=== PATIENT | male | born 1960 | race Caucasian/White ===

== ENCOUNTER 2025-01-27 17:35 | Inpatient (IN) | payer BC, SELFPAY ==
[2025-01-27] VITALS (20 sets, daily range): BP systolic 117–247; BP diastolic 64–107; PULSE 58–108; RESP 16–22; TEMP 36.7; O2SAT 93–100; BMI 40.1
[2025-01-27] MEDS: succinylcholine 20 mg/mL SDV 10mL 100 MG IVP (17:39)
[2025-01-27] MEDS: etomidate 2 mg/mL INJ SDV 10 mL 20 MG IVP (17:39)
[2025-01-27] MEDS: propofol 10 mg/mL SDV 20 mL 80 MG IVP (17:42)
[2025-01-27] MEDS: propofol 10 mg/mL SDV 20 mL 120 MG IVP (17:42)
--- NOTE | 2025-01-27 17:48 | CTR_ITS ---
PROCEDURE INFORMATION: Exam: CTA Chest With Contrast Exam date and time: 01/27/2025 6:25 PM Age: 64 years old Clinical indication: Injury or trauma; Fall; Blunt trauma (contusions or hematomas); Additional info: Vfib arrest TECHNIQUE: Imaging protocol: Computed tomographic angiography of the chest with contrast. Exam focused on the arteries. 3D rendering (Not supervised by radiologist): MIP and/or 3D reconstructed images were created by the technologist. Radiation optimization: All CT scans at this facility use at least one of these dose optimization techniques: automated exposure control; mA and/or kV adjustment per patient size (includes targeted exams where dose is matched to clinical indication); or iterative reconstruction. Contrast material: OMNIPAQUE 350; Contrast volume: 100 ml; Contrast route: INTRAVENOUS (IV); COMPARISON: CR (CHEST, ) 01/27/2025 5:46 PM RADIATION DOSE METRICS: Total DLP (mGy-cm): 538.12 FINDINGS: Tubes, catheters and devices: Endotracheal catheter seen in good position above the level of the javier. NG/OG tube is seen with tip of the catheter in the stomach, appearing in good position. Pulmonary arteries: Main pulmonary artery appears upper limits of normal at 3.3 cm. Pulmonary arteries appear unremarkable otherwise. No findings to indicate central or main pulmonary emboli. Aorta: Ascending thoracic aorta measures 3.9 cm, aortic arch measures 3.3 cm and descending thoracic aorta measures 3.5 cm. No findings to indicate thoracic aortic dissection or aneurysm. Lungs: Dependent areas of consolidation noted posteriorly throughout both lungs, with likely significant component of atelectasis, though could represent pneumonias such as aspiration. Tiny calcified granuloma right lung base. Pleural spaces: No pleural effusion. No pneumothorax. Heart: Cardiomegaly, particularly left side of the heart and left ventricular hypertrophy. No pericardial effusion. Suggestion of [id number] left coronary artery calcification. Lymph nodes: No significant lymph node enlargement or lymphadenopathy. Gallbladder and biliary ducts: Images through the upper-most abdomen demonstrate multiple gallstones or cholelithiasis. Bones/joints: A nondisplaced rib fracture seen anterior 5th rib on the right. Mild spondylotic change thoracic spine with mild scoliosis. Soft tissues: Unremarkable. CT/CT angio chest PE protcl [id number] IMPRESSION: 1. Endotracheal catheter and NG/OG tube appear in good position, as noted above. 2. No findings of thoracic aortic dissection/aneurysm. Pulmonary arteries show no significant abnormality. 3. Dependent areas of consolidation noted posteriorly throughout both lungs, more prominent within the lower lungs. While this may represent significant component of atelectasis, though also consider pneumonia such as aspiration. 4. Cardiomegaly, particularly left side of the heart and suggestion of left ventricular hypertrophy. No pericardial effusion. [id number] left coronary artery calcification. 5. Cholelithiasis. 6. Nondisplaced rib fracture anterior 5th rib on the right.
--- NOTE | 2025-01-27 17:48 | XRR_ITS ---
PROCEDURE INFORMATION: Exam: XR Chest Exam date and time: 01/27/2025 5:46 PM Age: 64 years old Clinical indication: Shortness of breath; Additional info: Stemi alert TECHNIQUE: Imaging protocol: Radiologic exam of the chest. Views: 1 view. COMPARISON: No relevant prior studies available. FINDINGS: Tubes, catheters and devices: Endotracheal catheter is seen and appears in good position with tip of the catheter at the level of the inferior heads of the clavicle and approximately 4 cm above the level of the javier. NG/OG tube is seen and projects in good position in the upper left abdomen at the expected level of the stomach. Overlying monitor leads and pacer pad noted. Lungs: No infiltrate or consolidation. Mild central vascular congestion on this supine exam. Pleural spaces: No significant pleural effusion. No pneumothorax is seen. Heart/Mediastinum: Prominence of the cardiomediastinal silhouette on this supine single view exam. When clinically able, this could be better evaluated with semi-upright or upright exam. Bones/joints: Visualized osseous structures show no acute abnormality. XR/XR chest 1V portable [id number] IMPRESSION: 1. Endotracheal catheter appears in good position, approximately 4 cm above the level of the javier. NG/OG tube is seen with distal aspect in the upper left abdomen at the expected level of the stomach. 2. Accentuation or prominence of the cardiomediastinal silhouette with supine exam, along with mild central vascular congestion with supine exam. When clinically able, this could be better evaluated with semi-upright or upright exam.
--- NOTE | 2025-01-27 17:48 | ECG_ITS ---
[facility] Test Date: 2025-01-27 Pat Name: Cassi Navas Department: Room: Gender: Male Newsroom Intern: : 1960 Requested By: Mitch Lagos Order Number: [id number] Jann MD: Joseph Burnett M.D. Measurements Intervals [place] Rate: 100 P: 44 SC: 156 QRS: -88 QRSD: 195 T: 31 QT: 337 QTc: 435 Interpretive Statements SINUS TACHYCARDIA WITH OCCASIONAL VENTRICULAR PREMATURE COMPLEXES WITH FREQUENT SUPRAVENTRICULAR PREMATURE COMPLEXES RIGHT BUNDLE BRANCH BLOCK [120+ ms QRS DURATION, UPRIGHT V1, 40+ ms S IN I/aVL/V4/V5/V6] LEFT ANTERIOR FASCICULAR BLOCK [QRS AXIS <= -45, QR IN I, RS IN II] INTERPRETATION BASED ON A DEFAULT AGE OF 40 YEARS No previous ECG available for comparison Electronically Signed On 01-27-2025 20:00:42 CDT by Joseph Burnett M.D. [id number]
[2025-01-27 18:00] LABS: ABG PCO2 52.8 mmHg (35-45); ABG PH Result 7.27 (7.35-7.45); Alveolar-Arterial Oxygen Gradi 75.5 mmHg (5-10); Arterial Blood Gas Hematocrit 46.6 % (42-52); Blood Gas Allen Test Pos; Blood Gas Operator Identificat CK; Blood Gas Sample Site Radial, left; Blood Gas Sample Type Arterial; Blood Gas Tidal Volume 0.50; Carboxyhemoglobin 1.1 %THgb (0.4-20.1); Glucose Level-ABG 218.0 mg/dL (70-115); HCO3 ABG 24.0 mmol/L (22-26); Ionized Calcium Level - ABG 1.2 mmol/L (1.1-1.4); Methemoglobin 1.0 % (0.4-1.5); Oxygen Saturation ABG 91.0; PEEP 10.0 cmH20; PO2 ABG 67.0 mmHg (80.0-100.0); PO2 FiO2 Ratio Arterial Blood 67; Potassium Level - ABG 3.0 mmol/L (3.5-5.0); Sodium Level - ABG 147.0 mmol/L (131-143)
[2025-01-27] MEDS: propofol 1,000 MG/100 ML INJ 4.08 MG IV (18:05)
[2025-01-27] MEDS: heparin 5,000 unit/mL INJ 1 mL 4000 UNIT IVP (18:11)
--- NOTE | 2025-01-27 18:15 | PM.HP ---
Providers/Chief Complaint Admitting Physician: Alejandro Ruiz MD/ Cardiology Chief Complaint: Cardiac arrest History of Present Illness Cassi Navas is a 64 year old male with no prior known cardiac history has been brought by EMS after he passed out while working in the backyard with the . Per EMS there was no chest pain complaints before. The started CPR and called EMS. Was noted to be in V-fib arrest. ROSC acheived and per EMS, total CPR time was approx 15 minutes. Post ROSC not showing STEMI. Patient is intubated. Review of Systems General: Reports: ROS unobtainable due to endotracheal tube Vitals/I&O/Wt Last Vital Signs Temp 98.1 F 01/27/25 17:42 Pulse 108 H 01/27/25 17:42 Resp 20 H 01/27/25 17:48 BP 247/107 01/27/25 17:42 Pulse Ox 93 01/27/25 17:42 O2 Del Method Mechanical Ventilation 01/27/25 17:42 FiO2 100 01/27/25 17:48 Weight last 48 hrs Weight 300 lb Physical Exam Narrative: GENERAL: Patient is intubated and sedated NECK: No jugular vein distension. [] HEENT: No cyanosis. No icterus. No pallor. [] HEART: Irregularly irregular LUNGS: Diminished air entry EXTREMITIES: Lower extremities with no edema A&P Assessment and plan 1. Cardiac arrest with ventricular fibrillation: Plan: Per EMS report patient had a V-fib cardiac arrest at initial presentation and had successful ROSC after total CPR time of 15 minutes. We do not have any other history. EKG is not showing acute ST elevation AL. We will obtain an emergent chest CT and take patient for coronary angiogram Heparin given. Will also receive aspirin. Patient will need ICU transfer post procedure. PDMP PDMP Reviewed: Not Reviewed Attestations Medical Necessity Statement*: Care expected to cross 2 midnights. Patient has presented post cardiac arrest and will be going for emergent CT chest and coronary angiogram. Coding Level of Care Code Acute Code for g Fwd Diagnoses Cardiac arrest with ventricular fibrillation I46.9; I49.01
[2025-01-27] MEDS: midazolam hcl 100 MG/100 ML BAG IV (19:00)
[2025-01-27] MEDS: fentaNYL 1,000 MCG/100 ML BAG 10 MCG IV (19:00)
[2025-01-27 19:04] LABS: Hematocrit 41.9 % (37-53); Hemoglobin 14.30 g/dL (11.27-16.99); Mean Corpuscular HGB Conc 34.1 g/dL (30-55); Mean Corpuscular Hemoglobin 30.9 pg (27-33); Mean Corpuscular Volume 90.5 fl (82-101); Nucleated Red Blood Cells % 0 %; Platelet Count 229 10^3/cmm (157-399); Red Blood Count 4.63 10^6/uL (3.85-5.65); White Blood Count 16.76 10^3/uL (3.29-11.43)
[2025-01-27 19:17] LABS: INR 1.03 (0.8-1.2); Prothrombin Time 14.20 SECONDS (12.1-14.9)
[2025-01-27 19:19] LABS: Partial Thromboplastin Time 59.0 SECONDS (23.9-36.7)
[2025-01-27 19:22] LABS: Troponin(5th) Baseline 73 ng/L (0-15)
--- NOTE | 2025-01-27 19:27 | W.ED.GENADLT ---
HPI - General Adult General: Chief complaint: Cardiac Arrest/CPR Stated complaint: Stemi- Time Seen by Provider: 01/27/25 17:41 History of Present Illness: Patient is an obese middle-aged male who experienced a witnessed sudden collapse at home today. His immediately initiated CPR. EMS arrived approximately 5 minutes after the collapse and found the patient in ventricular fibrillation. They delivered one shock and administered one dose of epinephrine. After approximately 13 minutes of resuscitation efforts, return of spontaneous circulation (ROSC) was achieved. Upon arrival to the ED, the patient was obtunded with no purposeful movements, though he demonstrated spontaneous breathing and was somewhat agitated with writhing movements. Per , the patient has no known medical history as he refuses to see doctors and takes no medications. There was no prodrome reported prior to the collapse. Course Vital Signs: Vital signs: Vital Signs Temperature 98.1 F 01/27/25 17:42 Pulse Rate 108 H 01/27/25 17:42 Respiratory Rate 20 H 01/27/25 17:48 Blood Pressure 247/107 01/27/25 17:42 Pulse Oximetry 93 01/27/25 17:42 Oxygen Delivery Me thod Mechanical Ventil ation 01/27/25 17:42 Fraction of Inspir ed Oxygen 100 01/27/25 17:48 MDM - General Adult Medical Decision Making ROS: Unobtainable due to patient's condition. MEDICATIONS AND ALLERGIES: Meds: None reported by Allergies: None known PAST HISTORICAL DATA: PMH: Unknown - reports patient refuses to see doctors PSH: Unknown Social: Unknown Family History: Unknown VITAL SIGNS: Blood sugar: 193 Heart rate: Approximately 100 bpm Blood pressure: Unable to obtain accurate measurement initially, but patient had strong radial pulses bilaterally PHYSICAL EXAM: General: Obtunded, agitated with non-purposeful movements HEENT: Pupils 4-5mm and reactive bilaterally Neck: Not examined in detail Respiratory: Spontaneous breathing present initially Cardiovascular: Strong radial pulses bilaterally, tachycardic Abdomen: Distended Extremities: No significant lower extremity swelling or edema noted Neurological: No purposeful movements, eyes opening spontaneously, agitated INITIAL IMPRESSION AND PLAN: Given the history and presentation, the primary working diagnosis is cardiac arrest with return of spontaneous circulation, likely due to acute coronary syndrome. Additional considerations include primary arrhythmia, pulmonary embolism, aortic dissection, and metabolic derangements. Based on this initial impression I will order: 1. Rapid sequence intubation for airway protection 2. CTA of the chest to evaluate for aortic dissection and pulmonary embolism 3. EKG to evaluate for STEMI 4. Laboratory studies including CBC, CMP, troponin 5. Cardiology consultation for possible emergent cardiac catheterization 6. Heparin anticoagulation if no contraindications identified 7. Sedation with propofol and analgesia as needed TEST INTERPRETATIONS: EKG: Sinus tachycardia with occasional ventricular premature complexes and frequent supraventricular premature complexes. Rate of 100 beats per minute. Right bundle branch block noted. No ST elevation [place] identified. CTA Chest: ET tube in appropriate position above the javier. No evidence of thoracic aortic dissection or aneurysm. No significant abnormalities of the pulmonary artery. Dependent areas of consolidation posteriorly throughout both lungs, more prominent within the lower lungs, concerning for aspiration. Cardiomegaly noted. Mild to moderate left coronary artery calcification. Nondisplaced rib fracture of the anterior fifth rib on the right, consistent with CPR. Labs: WBC 16.6, initial troponin 73 PROCEDURES: Procedure: Endotracheal Intubation Indication: Airway protection in post-cardiac arrest patient with obtundation Technique: Rapid sequence intubation performed at bedside using direct laryngoscopy with a MAC 4 blade. An 8.0 ET tube was placed successfully on first attempt without complications or episodes of hypoxemia. Medications: Etomidate 20mg IV and succinylcholine 100mg IV for induction and paralysis. Post-intubation sedation with propofol and analgesia with fentanyl. Confirmation: Proper placement confirmed by end-tidal CO2 detection, bilateral breath sounds, and subsequent CTA chest showing appropriate positioning above the javier. Complications: None CONSIDERED BUT NOT PERFORMED: Thrombolytics considered but not administered due to plan for direct cardiac catheterization and absence of confirmed massive pulmonary embolism. FINAL IMPRESSION: Based on all the above, my clinical impression is most compatible with cardiac arrest with return of spontaneous circulation, likely due to acute coronary syndrome given the elevated troponin of 73. The clinical picture is not currently suggestive of aortic dissection or massive pulmonary embolism based on CTA findings. Although other conditions were also considered, they were deemed unlikely based on the clinical information available. CLINICAL DISPOSITION: The patient's current condition is critical but stable in my estimation and the most appropriate and indicated disposition at this time is direct admission to the cardiac catheterization laboratory under the care of Dr. Ruiz from cardiology, followed by ICU admission. The patient requires admission due to the severity of his condition following cardiac arrest with ROSC. He requires intensive monitoring, mechanical ventilation, and further cardiac evaluation and intervention. The patient has evidence of myocardial injury with an elevated troponin and will benefit from emergent cardiac catheterization to identify and potentially treat coronary artery disease. RISK STRATIFICATION AND CLINICAL DECISION RULES APPLIED: Post-cardiac arrest care protocol applied. Patient meets criteria for emergent cardiac catheterization based on cardiac arrest with ROSC and elevated troponin, without evidence of non-cardiac cause. CASE SUMMARY: Middle-aged obese male with no known medical history who suffered witnessed cardiac arrest at home with immediate bystander CPR by . EMS found patient in ventricular fibrillation, administered one shock and one dose of epinephrine, with ROSC achieved after approximately 13 minutes of resuscitation. In the ED, patient was obtunded without purposeful movements but with spontaneous breathing and agitation. RSI was performed for airway protection with successful intubation. Initial troponin was elevated at 73. EKG showed sinus tachycardia with occasional PVCs and frequent PACs, with right bundle branch block but no STEMI. CTA chest ruled out aortic dissection and pulmonary embolism, showing cardiomegaly and coronary calcifications. Patient received 4,000 units of heparin bolus and was taken directly to the cardiac catheterization laboratory by Dr. Ruiz from cardiology, with plan for ICU admission afterward. Lab Data I reviewed the patient's lab results. 01/27/25 18:58 01/27/25 18:58 Radiology Impressions Chest CTA 01/27/25 17:48 IMPRESSION: 1. Endotracheal catheter and NG/OG tube appear in good position, as noted above. 2. No findings of thoracic aortic dissection/aneurysm. Pulmonary arteries show no significant abnormality. 3. Dependent areas of consolidation noted posteriorly throughout both lungs, more prominent within the lower lungs. While this may represent significant component of atelectasis, though also consider pneumonia such as aspiration. 4. Cardiomegaly, particularly left side of the heart and suggestion of left ventricular hypertrophy. No pericardial effusion. Fymo-tv-[id number] left coronary artery calcification. 5. Cholelithiasis. 6. Nondisplaced rib fracture anterior 5th rib on the right. Chest X-Ray 01/27/25 17:48 IMPRESSION: 1. Endotracheal catheter appears in good position, approximately 4 cm above the level of the javier. NG/OG tube is seen with distal aspect in the upper left abdomen at the expected level of the stomach. 2. Accentuation or prominence of the cardiomediastinal silhouette with supine exam, along with mild central vascular congestion with supine exam. When clinically able, this could be better evaluated with semi-upright or upright exam. Laboratory Results WBC 16.76 10^3/uL (3.29-11.43) H 01/27/25 18:58 RBC 4.63 10^6/uL (3.85-5.65) 01/27/25 18:58 Hgb 14.30 g/dL (11.27-16.99) 01/27/25 18:58 Hct 41.9 % (37-53) 01/27/25 18:58 MCV 90.5 fl (82-101) 01/27/25 18:58 MCH 30.9 pg (27-33) 01/27/25 18:58 MCHC 34.1 g/dL (30-55) 01/27/25 18:58 RDW 13.8 % (12.1-15.1) 01/27/25 18:58 Plt Count 229 10^3/cmm (157-399) 01/27/25 18:58 MPV 9.6 fL (7.4-10.4) 01/27/25 18:58 Neut % (Auto) 87.4 % 01/27/25 18:58 Lymph % (Auto) 6.2 % 01/27/25 18:58 [place] % (Auto) 5.4 % 01/27/25 18:58 Eos % (Auto) 0.1 % 01/27/25 18:58 Baso % (Auto) 0.2 % 01/27/25 18:58 Neut # (Auto) 14.64 10^3/uL (1.8-7.7) H 01/27/25 18:58 Lymph # (Auto) 1.0 10^3/uL (0.8-4.8) 01/27/25 18:58 [place] # (Auto) 0.9 10^3/uL (0.2-0.9) 01/27/25 18:58 Eos # (Auto) 0.0 10^3/uL (0.0-0.8) 01/27/25 18:58 Baso # (Auto) 0.0 10^3/uL (0.0-0.1) 01/27/25 18:58 Nucleated RBC % (auto) 0 % 01/27/25 18:58 Nucleated RBCs # 0.0 /100WBC 01/27/25 18:58 PT 14.20 SECONDS (12.1-14.9) 01/27/25 18:58 INR 1.03 (0.8-1.2) 01/27/25 18:58 APTT 59.0 SECONDS (23.9-36.7) H 01/27/25 18:58 Specimen Type Arterial 01/27/25 17:48 Sample Site Radial, left 01/27/25 17:48 ABG pH 7.27 (7.35-7.45) L 01/27/25 17:48 ABG pCO2 52.8 mmHg (35-45) H 01/27/25 17:48 ABG pO2 67.0 mmHg (80.0-100.0) L 01/27/25 17:48 ABG PO2/FiO2 Ratio 67 01/27/25 17:48 ABG HCO3 24.0 mmol/L (22-26) 01/27/25 17:48 ABG O2 Saturation 91.0 01/27/25 17:48 ABG Base Excess -3.8 mmol/L (-2.0-2.0) L 01/27/25 17:48 Raj Test Pos 01/27/25 17:48 A-a O2 Gradient 75.5 mmHg (5-10) H 01/27/25 17:48 Hematocrit 46.6 % (42-52) 01/27/25 17:48 Hgb O2 Saturation 89.1 % (95-100) L 01/27/25 17:48 Carboxyhemoglobin 1.1 %THgb (0.4-20.1) 01/27/25 17:48 Methemoglobin 1.0 % (0.4-1.5) 01/27/25 17:48 Total Hemoglobin 15.2 g/dL (14-18) 01/27/25 17:48 Sodium 147.0 mmol/L (131-143) H 01/27/25 17:48 Potassium 3.0 mmol/L (3.5-5.0) L 01/27/25 17:48 Glucose 218.0 mg/dL (70-115) H 01/27/25 17:48 Ionized Calcium 1.2 mmol/L (1.1-1.4) 01/27/25 17:48 O2 Delivery Device Vent 01/27/25 17:48 FiO2 100.0 % 01/27/25 17:48 Tidal Volume 0.50 01/27/25 17:48 PEEP 10.0 cmH20 01/27/25 17:48 End Packer ID Ck 01/27/25 17:48 Troponin T Baseline 73 ng/L (0-15) H 01/27/25 18:58 All radiology interpretation(s) finalized by discharge Critical Care Time Critical Care Time: Critical Care Time: Yes Total Critical Care Time: 30 Attestation: This case had a high probability of a clinically significant, sudden, or life threatening deterioration of this patient's condition which required my full and direct attention, intervention and personal management. Discharge Plan Discharge Patient Disposition: Admitted As Inpatient Clinical Impression: Cardiac arrest with ventricular fibrillation Condition: Critical Coding Level of Care Code ED [employer] Supervisor for Lai Poe
--- NOTE | 2025-01-27 19:40 | PM.PROC ---
Procedure Note: Date of procedure: 01/27/25 Pre-procedure diagnosis: Vfib cardiac arrest Post-procedure diagnosis: other (Patent coronary arteries) Procedure: Patent coronary arteries. LV systolic function is mildly reduced with EF of 40% and global hypokinesis. We will consult medicine team for further workup and evaluation. CT scan not showing dissection or PE. Performing Provider: Alejandro Ruiz Estimated blood loss (mL): 10 Complications: None Condition: critical Disposition: ICU Coding Level of Care Code Acute Code for Lai Poe
--- NOTE | 2025-01-27 19:44 | CTR_ITS ---
PROCEDURE INFORMATION: Exam: CT Abdomen And Pelvis With Contrast Exam date and time: 01/27/2025 8:00 PM Age: 64 years old Clinical indication: Other: Unconscious; Additional info: Cardiac arrest TECHNIQUE: Imaging protocol: Computed tomography of the abdomen and pelvis with contrast. Radiation optimization: All CT scans at this facility use at least one of these dose optimization techniques: automated exposure control; mA and/or kV adjustment per patient size (includes targeted exams where dose is matched to clinical indication); or iterative reconstruction. Contrast material: OMNIPAQUE 350; Contrast volume: 50 ml; Contrast route: INTRAVENOUS (IV); COMPARISON: CT angio chest PE protcl [id number] 01/27/2025 6:25 PM RADIATION DOSE METRICS: Total DLP (mGy-cm): 1356 FINDINGS: Tubes, catheters and devices: Enteric tube tip in the stomach. Lungs: Bilateral dependent airspace infiltrates. Heart: Cardiomegaly. Liver: Normal. No mass. Gallbladder and biliary ducts: Cholelithiasis. Pancreas: Normal. No ductal dilation. Spleen: Normal. No splenomegaly. Adrenal glands: Normal. No mass. Kidneys and ureters: Normal. No hydronephrosis. Stomach and bowel: Diverticulosis without diverticulitis. Prominent fluid in the stomach small bowel and ascending colon, please correlate for a gastroenteritis colitis. Appendix: No evidence of appendicitis. Intraperitoneal space: Unremarkable. No free air. No significant fluid collection. Vasculature: Unremarkable. No abdominal aortic aneurysm. Lymph nodes: Unremarkable. No enlarged lymph nodes. Urinary bladder: Perry catheter in the urinary bladder with a small amount of contrast in the urinary bladder without free extravasation. Reproductive: Unremarkable as visualized. Bones/joints: Right anterolateral 5th, as well as possible 6th and 7th lateral rib fractures. Soft tissues: Punctate pocket of subcutaneous emphysema over the right lower anterior chest wall, nonspecific. CT/CT abdomen pelvis w con* [id number] IMPRESSION: 1. Right anterolateral 5th, as well as possible 6th and 7th lateral rib fractures. 2. Enteric tube tip in the stomach. 3. Cholelithiasis. 4. Diverticulosis without diverticulitis. 5. Prominent fluid in the stomach small bowel and ascending colon, please correlate for a gastroenteritis colitis. 6. Perry catheter in the urinary bladder with a small amount of contrast in the urinary bladder without free extravasation. 7. Cardiomegaly. 8. Bilateral dependent airspace infiltrates.
--- NOTE | 2025-01-27 19:44 | CTR_ITS ---
PROCEDURE INFORMATION: Exam: CTA Head With Contrast, Arteriography Exam date and time: 01/27/2025 8:00 PM Age: 64 years old Clinical indication: Drowsiness or somnolence; Additional info: Cardiac arrest TECHNIQUE: Imaging protocol: Computed tomographic angiography of the head with contrast. Exam focused on the arteries. 3D rendering (Not supervised by radiologist): MIP and/or 3D reconstructed images were created by the technologist. Radiation optimization: All CT scans at this facility use at least one of these dose optimization techniques: automated exposure control; mA and/or kV adjustment per patient size (includes targeted exams where dose is matched to clinical indication); or iterative reconstruction. Contrast material: OMNIPAQUE 350; Contrast volume: 85 ml; Contrast route: INTRAVENOUS (IV); COMPARISON: CT head wo con* [id number] 01/27/2025 8:00 PM RADIATION DOSE METRICS: Total DLP (mGy-cm): 523.5 FINDINGS: ANTERIOR CIRCULATION: Right internal carotid artery: Intracranial segment is patent with no significant stenosis. No aneurysm. Right middle cerebral artery: No occlusion or significant stenosis. No aneurysm. Right anterior cerebral artery: No occlusion or significant stenosis. No aneurysm. Left internal carotid artery: Intracranial segment is patent with no significant stenosis. No aneurysm. Left middle cerebral artery: No occlusion or significant stenosis. No aneurysm. Left anterior cerebral artery: No occlusion or significant stenosis. No aneurysm. POSTERIOR CIRCULATION: Right vertebral artery: No occlusion or significant stenosis. No aneurysm. Left vertebral artery: No occlusion or significant stenosis. No aneurysm. Basilar artery: No occlusion or significant stenosis. No aneurysm. Right posterior cerebral artery: No occlusion or significant stenosis. No aneurysm. Left posterior cerebral artery: No occlusion or significant stenosis. No aneurysm. Brain: No definite mass, mass effect, or midline shift. Cerebral ventricles: No ventriculomegaly. Bones/joints: No acute findings. Soft tissues: Unremarkable. PROCEDURE INFORMATION: Exam: CTA Neck With Contrast Exam date and time: 01/27/2025 8:00 PM Age: 64 years old Clinical indication: Drowsiness or somnolence; Additional info: Cardiac arrest TECHNIQUE: Imaging protocol: Computed tomographic angiography of the neck with contrast. Exam focused on the cervical segments of the vasculature. 3D rendering (Not supervised by radiologist): MIP and/or 3D reconstructed images were created by the technologist. Radiation optimization: All CT scans at this facility use at least one of these dose optimization techniques: automated exposure control; mA and/or kV adjustment per patient size (includes targeted exams where dose is matched to clinical indication); or iterative reconstruction. Contrast material: OMNIPAQUE 350; Contrast volume: 85 ml; Contrast route: INTRAVENOUS (IV); COMPARISON: CT angio chest PE protcl [id number] 01/27/2025 6:25 PM RADIATION DOSE METRICS: Total DLP (mGy-cm): 523.5 FINDINGS: Right common carotid artery: No stenosis. No dissection or occlusion. Vessel tortuosity. High carotid bifurcation. Right internal carotid artery: No stenosis of the extracranial segment. No dissection or occlusion. Vessel tortuosity. Right external carotid artery: No occlusion or stenosis of the origin. Left common carotid artery: No stenosis. No dissection or occlusion. Vessel tortuosity. High carotid bifurcation. Left internal carotid artery: No stenosis of the extracranial segment. No dissection or occlusion. Vessel tortuosity. Left external carotid artery: No occlusion or stenosis of the origin. Right vertebral artery: No stenosis. No dissection or occlusion. Dominant right vertebral artery. Left vertebral artery: No stenosis. No dissection or occlusion. Soft tissues: Unremarkable. Endotracheal and OG tube are seen. Bones/joints: Spondylotic degenerative change cervical spine. CT/CT angio headneck* [id number] IMPRESSION: No large vessel stenosis or occlusion. IMPRESSION: No stenosis or occlusion. REFERENCES: NASCET CRITERIA. The degree of stenosis in the cervical segment of the internal carotid artery is based on NASCET criteria. Normal is no stenosis. Mild is less than 50% stenosis. Moderate is 50-69% stenosis. Severe is 70% to 99% stenosis. Total occlusion is no detectable patent lumen.
--- NOTE | 2025-01-27 19:44 | CTR_ITS ---
PROCEDURE INFORMATION: Exam: CT Head Without Contrast Exam date and time: 01/27/2025 8:00 PM Age: 64 years old Clinical indication: Coma or unconsciousness; Additional info: Cardiac arrest TECHNIQUE: Imaging protocol: Computed tomography of the head without contrast. Radiation optimization: All CT scans at this facility use at least one of these dose optimization techniques: automated exposure control; mA and/or kV adjustment per patient size (includes targeted exams where dose is matched to clinical indication); or iterative reconstruction. COMPARISON: CT angio headneck* [id number] 01/27/2025 8:00 PM RADIATION DOSE METRICS: Total DLP (mGy-cm): 1315.6 FINDINGS: Brain: No intracranial hemorrhage or hematoma is seen. No mass effect or shift of midline structures. No findings to indicate territorial or large vessel ischemic infarct. Exam was performed postcontrast from previous CTA chest and no abnormal contrast enhancement or contrast enhancing mass is seen. Cerebral ventricles: No ventriculomegaly. Paranasal sinuses: Tiny polyp medial inferior left frontal sinus/anterior left ethmoid sinus. Very small left frontal sinus benign osteoma. No air-fluid levels. Next Mastoid air cells: Visualized mastoid air cells are well aerated. Bones: Bone windows of the skull show no acute abnormality. Soft tissues: Unremarkable. CT/CT head wo con* [id number] IMPRESSION: No acute intracranial abnormality.
[2025-01-27 19:56] LABS: Alanine Aminotransferase 37 U/L (0-41); Albumin Level 3.9 g/dL (3.5-5.2); Alkaline Phosphatase 91 U/L (40-130); Anion Gap 19.1 (5-19); Aspartate Amino Transferase 48 U/L (0-40); Blood Urea Nitrogen 24 mg/dL (8-23); Calcium 8.3 mg/dL (8.5-10.5); Carbon Dioxide 20 mmol/L (22-29); Chloride 108 mmol/L (98-107); Globulin 2.6 g/dL (1.3-4.6); Glucose 160 mg/dL (65-115); Lipase 25 U/L (13-60); NT Pro B Type Natriuretic Pept 2977 pg/mL (0-125); Osmolality Calculated 305 mOsm/kg (285-295); Potassium 3.1 mmol/L (3.5-5.1); Sodium 144 mmol/L (136-145); Total Protein 6.5 g/dL (6.6-8.7)
[2025-01-27] MEDS: iohexol 350 mg/mL 500 mL Btl (per mL) IV (20:08)
--- NOTE | 2025-01-27 20:19 | ECG_ITS ---
[facility] Test Date: 2025-01-27 Pat Name: Cassi Navas Department: Room: Gender: Male Pediatric Psychologist: : 1960 Requested By: Mitch Lagos Order Number: [id number] Forte MD: Joseph Burnett M.D. Measurements Intervals [place] Rate: 62 P: 55 CO: 199 QRS: -82 QRSD: 198 T: 33 QT: 522 QTc: 533 Interpretive Statements SINUS RHYTHM RIGHT BUNDLE BRANCH BLOCK [120+ ms QRS DURATION, UPRIGHT V1, 40+ ms S IN I/aVL/V4/V5/V6] LEFT ANTERIOR FASCICULAR BLOCK [QRS AXIS <= -45, QR IN I, RS IN II] Electronically Signed On 01-27-2025 20:22:16 CDT by Joseph Burnett M.D. [email or web address] [id number]
[2025-01-27] MEDS: pantoprazole 40 mg SDV IVP (20:53)
[2025-01-27] MEDS: heparin 5,000 unit/mL INJ 1 mL 5000 UNIT SUBCUT (20:53)
[2025-01-27 21:23] LABS: Lactic Sepsis W/Reflex 1.4 mmol/L (0.5-2.2)
[2025-01-27 21:31] LABS: Troponin 5 2HR 211.7 ng/L (0-15); Troponin 5 2HR Delta 138.7 ABS# (0-10)
[2025-01-27] MEDS: piperacillin-tazobactam 3.375 GM in sodium chloride 0.9% (plus) 50 ML IV (21:53)
[2025-01-27 22:03] LABS: Estmated Average Glucose 114; Hemoglobin A1C 5.6 % (4.0-6.0)
--- NOTE | 2025-01-27 22:03 | PM.CONSULT ---
Providers/Reason For Consult Consulting Physician/Specialty*: Marie Seaman MD/ Hospitalist Reason for Consult*: critical care management of medical issues Requesting Physician: Alejandro Ruiz M.D Attending Physician: Alejandro Ruiz M.D History of Present Illness History of Present Illness History is obtained by chart review, patient is intubated, sedated on ventilator. Cassi Navas is a 64 year old male without known medical comorbidities, who was brought by family after being found unresponsive while working outdoors. He was given CPR by his . EMS arrived approximately 5 minutes after the collapse and found the patient in ventricular fibrillation. They delivered one shock and administered one dose of epinephrine. After approximately 13 minutes of resuscitation efforts, return of spontaneous circulation (ROSC) was achieved. He did not have any ongoing illness priro to his collapse today. He was taken to the cardiac catheterization technologist urgently in view of V fib arrest, no occlusive CAD was found. LV systolic function is mildly reduced with EF of 40% and global hypokinesis. CTA chest was negative for PE. Currently he in intubated and sedated on mechanical ventilator with fentanyl and versed infusions ongoing. Review of Systems General: Reports: ROS unobtainable due to medical condition Medications/Allergies Home Medications ?Medication ?Instructions ?Recorded ?Confirmed ?Last Taken ?Type No Known Home Medications 01/27/25 01/27/25 Unknown History Allergies Allergy/AdvReac Type Severity Reaction Status Date / Time No Known Allergies Allergy Verified 01/27/25 21:58 Current Medications Generic Name Dose Route Start Last Admin Trade Name Freq PRN Reason Stop Dose Admin Albuterol/Ipratropium 3 ml 01/27/25 20:00 01/27/25 20:36 Ipratropium-Albuterol 3 Ml Neb INHALATION 3 ml Q6H.RESP TRISTAN Administration Heparin Sodium (Porcine) 5,000 unit 01/27/25 19:45 01/27/25 20:53 Heparin 5,000 Unit/Ml Inj 1 Ml SUBCUT 5,000 unit Q8H TRISTAN Administration Propofol 1,000 mg in 100 mls @ 0 mls/hr 01/27/25 18:00 01/27/25 19:02 Diprivan IV 0 mcg/kg/min .Q0M TRISTAN 0 mls/hr Protocol Titration Per Protocol Fentanyl 1,000 mcg in 100 mls @ 0 mls/hr 01/27/25 19:00 01/27/25 19:00 Sublimaze IV 100 mcg/hr .Q0M TRISTAN 10 mls/hr Protocol Administration Per Protocol Midazolam HCl 100 mg in 100 mls @ 0 mls/hr 01/27/25 19:00 01/27/25 19:00 Versed IV 4 mg/hr .Q0M TRISTAN 4 mls/hr Protocol Administration Per Protocol Piperacillin Sod/Tazobactam 50 mls @ 12.5 mls/hr 01/27/25 21:30 01/27/25 21:53 Sod 3.375 gm/ Sodium Chloride IV 12.5 mls/hr Q8H TRISTAN Administration Protocol Sodium Chloride 1,000 mls @ 125 mls/hr 01/27/25 19:45 01/27/25 21:03 Sodium Chloride 0.9% IV 125 mls/hr .Q8H TRISTAN Administration Vancomycin HCl 1,500 mg in 300 mls @ 200 mls/hr 01/27/25 20:30 01/27/25 20:54 Vancocin IV 200 mls/hr Q12H TRISTAN Administration Pantoprazole Sodium 40 mg 01/27/25 19:45 01/27/25 20:53 Pantoprazole 40 Mg Sdv IVP 40 mg Q24H TRISTAN Administration Vitals/I&O/Wt Last Vital Signs Temp 98.1 F 01/27/25 17:42 Pulse 59 L 01/27/25 20:37 Resp 16 01/27/25 20:37 BP 247/107 01/27/25 17:42 Pulse Ox 100 01/27/25 20:37 O2 Del Method Mechanical Ventilation 01/27/25 20:37 FiO2 80 01/27/25 20:37 01/27/25 01/27/25 01/27/25 06:59 14:59 22:59 Intake Total 3.876 / 3.876 Balance 3.876 / 3.876 Weight last 48 hrs Weight 136.078 kg Physical Exam Narrative: General: Intubated, sedated HEENT: PERRLA, pupils bilaterally equal and reactive, pallors not present Chest: Normal vesicular breath sounds, no added sounds, equal good air entry bilaterally CVS: S1-S2 regular, no murmurs, no tachycardia, no gallops, no rubs Abdomen: Soft, nontender, bowel sounds present Neuro: intubated, sedated Ext: no edema clubbing or cyanosis Data 01/28/25 03:36 01/28/25 03:36 Micro: Microbiology 01/27/25 20:55 Blood Culture - Preliminary Blood SPECIMEN COLLECTED 01/27/25 20:51 Blood Culture - Preliminary Blood SPECIMEN COLLECTED Other data: Radiology Impressions Chest CTA 01/27/25 17:48 IMPRESSION: 1. Endotracheal catheter and NG/OG tube appear in good position, as noted above. 2. No findings of thoracic aortic dissection/aneurysm. Pulmonary arteries show no significant abnormality. 3. Dependent areas of consolidation noted posteriorly throughout both lungs, more prominent within the lower lungs. While this may represent significant component of atelectasis, though also consider pneumonia such as aspiration. 4. Cardiomegaly, particularly left side of the heart and suggestion of left ventricular hypertrophy. No pericardial effusion. [id number] left coronary artery calcification. 5. Cholelithiasis. 6. Nondisplaced rib fracture anterior 5th rib on the right. Chest X-Ray 01/27/25 17:48 IMPRESSION: 1. Endotracheal catheter appears in good position, approximately 4 cm above the level of the javier. NG/OG tube is seen with distal aspect in the upper left abdomen at the expected level of the stomach. 2. Accentuation or prominence of the cardiomediastinal silhouette with supine exam, along with mild central vascular congestion with supine exam. When clinically able, this could be better evaluated with semi-upright or upright exam. Abdomen/Pelvis CT 01/27/25 19:44 IMPRESSION: 1. Right anterolateral 5th, as well as possible 6th and 7th lateral rib fractures. 2. Enteric tube tip in the stomach. 3. Cholelithiasis. 4. Diverticulosis without diverticulitis. 5. Prominent fluid in the stomach small bowel and ascending colon, please correlate for a gastroenteritis colitis. 6. Perry catheter in the urinary bladder with a small amount of contrast in the urinary bladder without free extravasation. 7. Cardiomegaly. 8. Bilateral dependent airspace infiltrates. Head CT 01/27/25 19:44 IMPRESSION: No acute intracranial abnormality. Head/Neck CTA 01/27/25 19:44 IMPRESSION: No large vessel stenosis or occlusion. IMPRESSION: No stenosis or occlusion. REFERENCES: NASCET CRITERIA. The degree of stenosis in the cervical segment of the internal carotid artery is based on NASCET criteria. Normal is no stenosis. Mild is less than 50% stenosis. Moderate is 50-69% stenosis. Severe is 70% to 99% stenosis. Total occlusion is no detectable patent lumen. Laboratory Results WBC 16.76 10^3/uL (3.29-11.43) H 01/27/25 18:58 RBC 4.63 10^6/uL (3.85-5.65) 01/27/25 18:58 Hgb 14.30 g/dL (11.27-16.99) 01/27/25 18:58 Hct 41.9 % (37-53) 01/27/25 18:58 MCV 90.5 fl (82-101) 01/27/25 18:58 MCH 30.9 pg (27-33) 01/27/25 18:58 MCHC 34.1 g/dL (30-55) 01/27/25 18:58 RDW 13.8 % (12.1-15.1) 01/27/25 18:58 Plt Count 229 10^3/cmm (157-399) 01/27/25 18:58 MPV 9.6 fL (7.4-10.4) 01/27/25 18:58 Neut % (Auto) 87.4 % 01/27/25 18:58 Lymph % (Auto) 6.2 % 01/27/25 18:58 [place] % (Auto) 5.4 % 01/27/25 18:58 Eos % (Auto) 0.1 % 01/27/25 18:58 Baso % (Auto) 0.2 % 01/27/25 18:58 Neut # (Auto) 14.64 10^3/uL (1.8-7.7) H 01/27/25 18:58 Lymph # (Auto) 1.0 10^3/uL (0.8-4.8) 01/27/25 18:58 [place] # (Auto) 0.9 10^3/uL (0.2-0.9) 01/27/25 18:58 Eos # (Auto) 0.0 10^3/uL (0.0-0.8) 01/27/25 18:58 Baso # (Auto) 0.0 10^3/uL (0.0-0.1) 01/27/25 18:58 Nucleated RBC % (auto) 0 % 01/27/25 18:58 Nucleated RBCs # 0.0 /100WBC 01/27/25 18:58 PT 14.20 SECONDS (12.1-14.9) 01/27/25 18:58 INR 1.03 (0.8-1.2) 01/27/25 18:58 APTT 59.0 SECONDS (23.9-36.7) H 01/27/25 18:58 Specimen Type Arterial 01/27/25 17:48 Sample Site Radial, left 01/27/25 17:48 ABG pH 7.27 (7.35-7.45) L 01/27/25 17:48 ABG pCO2 52.8 mmHg (35-45) H 01/27/25 17:48 ABG pO2 67.0 mmHg (80.0-100.0) L 01/27/25 17:48 ABG PO2/FiO2 Ratio 67 01/27/25 17:48 ABG HCO3 24.0 mmol/L (22-26) 01/27/25 17:48 ABG O2 Saturation 91.0 01/27/25 17:48 ABG Base Excess -3.8 mmol/L (-2.0-2.0) L 01/27/25 17:48 Raj Test Pos 01/27/25 17:48 A-a O2 Gradient 75.5 mmHg (5-10) H 01/27/25 17:48 Hematocrit 46.6 % (42-52) 01/27/25 17:48 Hgb O2 Saturation 89.1 % (95-100) L 01/27/25 17:48 Carboxyhemoglobin 1.1 %THgb (0.4-20.1) 01/27/25 17:48 Methemoglobin 1.0 % (0.4-1.5) 01/27/25 17:48 Total Hemoglobin 15.2 g/dL (14-18) 01/27/25 17:48 Sodium 147.0 mmol/L (131-143) H 01/27/25 17:48 Potassium 3.0 mmol/L (3.5-5.0) L 01/27/25 17:48 Glucose 218.0 mg/dL (70-115) H 01/27/25 17:48 Ionized Calcium 1.2 mmol/L (1.1-1.4) 01/27/25 17:48 O2 Delivery Device Vent 01/27/25 17:48 FiO2 100.0 % 01/27/25 17:48 Tidal Volume 0.50 01/27/25 17:48 PEEP 10.0 cmH20 01/27/25 17:48 Blacksmith Assistant ID Ck 01/27/25 17:48 Sodium 144 mmol/L (136-145) 01/27/25 18:58 Potassium 3.1 mmol/L (3.5-5.1) L 01/27/25 18:58 Chloride 108 mmol/L (98-107) H 01/27/25 18:58 Carbon Dioxide 20 mmol/L (22-29) L 01/27/25 18:58 Anion Gap 19.1 (5-19) H 01/27/25 18:58 BUN 24 mg/dL (8-23) H 01/27/25 18:58 Creatinine 1.2 mg/dL (0.7-1.2) 01/27/25 18:58 GFR Calculation 61.1 mL/min (90-130) L 01/27/25 18:58 Glucose 160 mg/dL (65-115) H 01/27/25 18:58 Estimat Average Glucose 114 01/27/25 20:51 Hemoglobin A1c 5.6 % (4.0-6.0) 01/27/25 20:51 Calculated Osmolality 305 mOsm/kg (285-295) H 01/27/25 18:58 Lactic Acid 1.4 mmol/L (0.5-2.2) 01/27/25 20:51 Calcium 8.3 mg/dL (8.5-10.5) L 01/27/25 18:58 Total Bilirubin 0.6 mg/dL (0.15-1.2) 01/27/25 18:58 AST 48 U/L (0-40) H 01/27/25 18:58 ALT 37 U/L (0-41) 01/27/25 18:58 Alkaline Phosphatase 91 U/L (40-130) 01/27/25 18:58 Troponin T Baseline 73 ng/L (0-15) H 01/27/25 18:58 Troponin T 120 Minute 211.7 ng/L (0-15) H 01/27/25 20:51 Delta Troponin T 138.7 ABS# (0-10) H* 01/27/25 20:51 NT-Pro-B Natriuret Pep 2977 pg/mL (0-125) H 01/27/25 18:58 Total Protein 6.5 g/dL (6.6-8.7) L 01/27/25 18:58 Albumin 3.9 g/dL (3.5-5.2) 01/27/25 18:58 Globulin 2.6 g/dL (1.3-4.6) 01/27/25 18:58 Lipase 25 U/L (13-60) 01/27/25 18:58 A&P Assessment and plan 1. Cardiac arrest with ventricular fibrillation: Patient brought to the emergency room today after having passed out at home. Upon EMS arrival reportedly patient was in V-fib. He received defibrillation followed by CPR Taken to [facility] upon arrival in view of V-fib arrest, noted to have clean coronaries. No obstructive CAD found. He is now intubated sedated in the ICU. Continue close telemetry monitoring for any repeat events. Electrolytes with normal sodium, mildly low potassium at 3.1 which is being repleted. CTA chest without evidence of PE Check echocardiogram CT head and CTA of the head and neck was requested which did not show any evidence of stroke. 2. Aspiration pneumonia: CTA chest without PE bilateral basilar infiltrates noted, suspected aspiration post CPR. Started on empiric piperacillin/tazobactam which is to be continued. continued mechanical ventilation at this time. ABG with am lasb to assess for vent weaning 3. Elevated troponin: Likely related to status post CPR. No obstructive CAD found in the [facility]. LV gram with EF of 40%. Will order echocardiogram, myocarditis remains in the differential. 4. Hypertensive emergency: Initially upon arrival of 247/147. This may be related to multiple doses of epinephrine given during CPR. Patient does not have a known history of hypertension, however has not had any medical contact either therefore tough to know if he has a history of hypertension or not. Currently with sedation with fentanyl and Versed, blood pressure has normalized 122/77 mmHg. Will closely monitor. To initiate antihypertensives if remains elevated. 5. Rib fracture: Related to CPR 6. Leukocytosis: May be related to stress reaction versus underlying infection. CTA of the chest abdomen and pelvis showing increased fluid in the ascending colon ? Colitis. Patient has not yet had a bowel movement since arrival. There are no reported symptoms of abdominal pain diarrhea or nausea vomiting prior to the event today. Started on piperacillin/tazobactam and vancomycin while undergoing infectious source evaluation today. UA , urine cx ordered, pneumonia as noted above on CTA Plan: DVT prophylaxis: Heparin 5000 subcutaneously every 8 hours Full code PDMP PDMP Reviewed: Not Reviewed Consult Attestations Medical Necessity Statement: Per admitting Critical Care Time: The high probability of a clinically significant, sudden or life threatening deterioration of the patient's [respiratory,cardiac,ID] system(s) required my full and direct attention, intervention and personal management. The critical care time is as shown. This time is in addition to time spent performing any reported procedures but includes the following: [x] Data and vital sign review and interpretation [x] Patient assessment, examination and intervention [x] Documentation [x] Medication orders and management Critical Care Time (min): 50 Coding Level of Care Code Acute Code for [facility] Fwd Diagnoses Cardiac arrest with ventricular fibrillation I46.9; I49.01 Aspiration pneumonia J69.0 Elevated troponin R79.89 Hypertensive emergency I16.1 Rib fracture S22.39XA Leukocytosis D72.829
--- NOTE | 2025-01-27 22:19 | PC.NURSE ---
[facility] by ER not this nurse
--- NOTE | 2025-01-27 22:29 | PC.NURSE ---
Admission questions answered by
--- NOTE | 2025-01-27 22:36 | PC.NURSE ---
og placement confirmed on ct scan report
[2025-01-27] MEDS: lidocaine 1% 5 ML in potassium chloride premix 100 ML 26.25 ML IV (22:50)
--- NOTE | 2025-01-27 23:48 | ECG_ITS ---
[facility] Date: [facility]25-01[facility]28 Pat Name: Cassi Navas Department: Room: [facility] Gender: Male Social Work Nurse: : 1960 Requested By: Mitch Lagos Order Number: [id number] Jann MD: Joseph Burnett M.D. Measurements Intervals [place] Rate: 61 P: 59 [place]: 192 QRS: -62 QRSD: 171 T: 67 QT: 480 QTc: 485 Interpretive Statements SINUS RHYTHM WITH OCCASIONAL SUPRAVENTRICULAR PREMATURE COMPLEXES RIGHT BUNDLE BRANCH BLOCK [120+ ms QRS DURATION, UPRIGHT V1, 40+ ms S IN I/aVL/V4/V5/V6] LEFT ANTERIOR FASCICULAR BLOCK [QRS AXIS <= -45, QR IN I, RS IN II] Compared to ECG 01/27/2025 20:19:04 No significant changes Electronically Signed On 01-29-2025 15:33:47 CDT by Joseph Burnett M.D. [email or web address] [id number]
[2025-01-28] VITALS (53 sets, daily range): BP systolic 92–192; BP diastolic 45–118; PULSE 54–108; RESP 15–27; TEMP 36.6–38.3; O2SAT 92–99
[2025-01-28 00:59] LABS: Troponin 5 6HR 279.1 ng/L (0-15); Troponin 5 6HR Delta 206.1 ng/L (0-12)
[2025-01-28] MEDS: fentaNYL 1,000 MCG/100 ML BAG 12.5 MCG IV ×2 (02:44→09:53)
[2025-01-28 02:46] LABS: Procalcitonin 0.36 ng/mL (0-0.5); Thyroid Stimulating Hormone 5.62 uIU/mL (0.27-4.20); Vitamin B12 715 pg/mL (232-1245)
[2025-01-28 03:10] LABS: Iron 58 ug/dL (59-158); Total Iron Binding Capacity 284 mcg/dl; Unsaturated Iron Binding 226 ug/dL (112-347)
[2025-01-28 03:57] LABS: Hematocrit 39.3 % (37-53); Hemoglobin 13.50 g/dL (11.27-16.99); Mean Corpuscular HGB Conc 34.4 g/dL (30-55); Mean Corpuscular Hemoglobin 31.0 pg (27-33); Mean Corpuscular Volume 90.3 fl (82-101); Nucleated Red Blood Cells % 0 %; Platelet Count 225 10^3/cmm (157-399); Red Blood Count 4.35 10^6/uL (3.85-5.65); White Blood Count 12.27 10^3/uL (3.29-11.43)
[2025-01-28] MEDS: heparin 5,000 unit/mL INJ 1 mL 5000 UNIT SUBCUT ×3 (04:17→20:34)
[2025-01-28 04:29] LABS: Alanine Aminotransferase 29 U/L (0-41); Albumin Level 3.6 g/dL (3.5-5.2); Alkaline Phosphatase 78 U/L (40-130); Anion Gap 15.0 (5-19); Aspartate Amino Transferase 30 U/L (0-40); Blood Urea Nitrogen 24 mg/dL (8-23); Calcium 8.2 mg/dL (8.5-10.5); Carbon Dioxide 24 mmol/L (22-29); Chloride 110 mmol/L (98-107); Creatinine Clr Calc Pharmacy 84.2130; Globulin 2.6 g/dL (1.3-4.6); Glucose 126 mg/dL (65-115); Osmolality Calculated 306 mOsm/kg (285-295); Potassium 4.0 mmol/L (3.5-5.1); Sodium 145 mmol/L (136-145); Total Protein 6.2 g/dL (6.6-8.7)
[2025-01-28 04:30] LABS: Magnesium 2.1 mg/dL (1.7-2.3)
[2025-01-28] MEDS: piperacillin-tazobactam 3.375 GM in sodium chloride 0.9% (plus) 50 ML IV ×3 (04:30→20:34)
[2025-01-28 04:35] LABS: Procalcitonin 0.99 ng/mL (0-0.5)
[2025-01-28 04:36] LABS: Cholesterol 155 mg/dL (0-200); HDL Cholesterol 38 mg/dL (60-100); Triglycerides 65 mg/dL (0-150)
[2025-01-28 04:55] LABS: ABG PCO2 44.1 mmHg (35-45); ABG PH Result 7.36 (7.35-7.45); Arterial Blood Gas Hematocrit 43.6 % (42-52); Blood Gas Allen Test Pos; Blood Gas Operator Identificat JDB; Blood Gas Sample Site Radial, right; Blood Gas Sample Type Arterial; Blood Gas Tidal Volume 0.50; HCO3 ABG 24.6 mmol/L (22-26); PEEP 10.0 cmH20; PO2 ABG 110.0 mmHg (80.0-100.0); PO2 FiO2 Ratio Arterial Blood 183
[2025-01-28 05:06] LABS: Glucose Urine UA Negative (Normal); Nitrate Urine Negative (Negative)
[2025-01-28 05:11] LABS: Add Urine Microscopic? YES
[2025-01-28 05:13] LABS: PCP Screen Urine Negative (Negative)
[2025-01-28 05:24] LABS: Specific Gravity, Urine 1.091 (1.005-1.030); UA Slide Review UA Slide Review Perf
[2025-01-28 05:25] LABS: UA Manual Slide Review YES
--- NOTE | 2025-01-28 09:36 | PHA.VACGOAL ---
Vancomycin Goal - Goal Vancomycin Goal:: 15-20 mg/L Vancomycin Indication:: Pneumonia - Therapy Current therapy:: Pip/Tazo Day of therpy:: Day [1]of [] . Actual body weight (kg): 129.228 kg - Data Labs: WBC 12.27 10^3/uL (3.29-11.43) H 01/28/25 03:36 RBC 4.35 10^6/uL (3.85-5.65) 01/28/25 03:36 Hgb 13.50 g/dL (11.27-16.99) 01/28/25 03:36 Hct 39.3 % (37-53) 01/28/25 03:36 MCV 90.3 fl (82-101) 01/28/25 03:36 MCH 31.0 pg (27-33) 01/28/25 03:36 MCHC 34.4 g/dL (30-55) 01/28/25 03:36 RDW 14.0 % (12.1-15.1) 01/28/25 03:36 Sodium 145 mmol/L (136-145) 01/28/25 03:36 Potassium 4.0 mmol/L (3.5-5.1) 01/28/25 03:36 Chloride 110 mmol/L (98-107) H 01/28/25 03:36 Carbon Dioxide 24 mmol/L (22-29) 01/28/25 03:36 Anion Gap 15.0 (5-19) 01/28/25 03:36 BUN 24 mg/dL (8-23) H 01/28/25 03:36 Creatinine 1.2 mg/dL (0.7-1.2) 01/28/25 03:36 GFR Calculation 61.1 mL/min (90-130) L 01/28/25 03:36 Treatment plan:: new consult Regimen:: New start vancomycin for Pneumonia. No prior history of vancomycin found. Started on maintenance dose of 1500 mg q12h.
[2025-01-28 10:55] LABS: Free T4 Free Thyroxine 0.94 ng/dL (0.82-1.77)
--- NOTE | 2025-01-28 11:07 | PC.NURSE ---
extubated this am. po bedside swallow done no choking ect. at bedside no c/o discomfort
--- NOTE | 2025-01-28 11:34 | P.PN_ITS ---
Subjective 2 Subjective: No acute events overnight. Today morning patient seen first on sedation. Awake and alert. With family at bedside. Sedation was turned off and patient was eventually extubated 2 L. Vitals/I&O/Wt Last Vital Signs Temp 98.5 F 01/28/25 07:00 Pulse 80 01/28/25 11:00 Resp 17 01/28/25 11:00 BP 162/80 01/28/25 11:00 Pulse Ox 94 01/28/25 11:00 O2 Del Method Mechanical Ventilation 01/28/25 07:50 FiO2 45 01/28/25 09:57 01/27/25 01/28/25 01/28/25 22:59 06:59 14:59 Intake Total 303.876 / 362.009 2755.167 / 1554.043 439.375 / 439.375 Output Total 950 / 950 700 / 1650 Balance -646.124 / -646.124 550.167 / -95.957 439.375 / 439.375 Weight last 48 hrs Weight 129.228 kg Weight 126.734 kg Weight 136.078 kg Physical Exam 2 Narrative: General: Intubated, sedated HEENT: PERRLA, pupils bilaterally equal and reactive, pallors not present Chest: Normal vesicular breath sounds, no added sounds, equal good air entry bilaterally CVS: S1-S2 regular, no murmurs, no tachycardia, no gallops, no rubs Abdomen: Soft, nontender, bowel sounds present Neuro: intubated, sedated Ext: no edema clubbing or cyanosis Urinary Catheter Management: Perry: Cath Placed During This Visit: yes Reason for Continuing Indwelling Catheter: Accurate Measurement of Urinary Output in Critically Ill Patients Urinary Catheter Date of Insertion: 01/27/25 Urinary Catheter Time of Insertion: 18:30 Data 01/28/25 03:36 01/28/25 03:36 Micro: Microbiology 01/28/25 04:50 Bacterial Antigens - Final Urine Kidney 01/27/25 20:55 Blood Culture - Preliminary Blood SPECIMEN COLLECTED 01/27/25 20:51 Blood Culture - Preliminary Blood SPECIMEN COLLECTED A&P Assessment and plan 1. Cardiac arrest with ventricular fibrillation: Patient brought to the emergency room today after having passed out at home. Upon EMS arrival reportedly patient was in V-fib. He received defibrillation followed by CPR Taken to Licensed [employer] Real [employer] Appraiser upon arrival in view of V-fib arrest, noted to have clean coronaries. No obstructive CAD found. Unknown reason. Echocardiogram done results pending. LV gram done during cardiac angiogram shows possibility of 45% EF. CTA chest negative for PE. CTA head and neck negative for any acute abnormality including stroke. CT abdomen pelvis with contrast negative for acute abnormality other than possibility of mild colitis though patient has not been having any diarrhea or abdominal pain as per the at bedside. Cannot rule out seizure disorder though patient does not have a history of seizures in the past versus possible V-fib. Monitor electrolytes. Maintain magnesium around 2, potassium around 4. vehicle monitor technician. Continue with NS at 100 cc/h. 2. Aspiration pneumonia: CTA chest without PE bilateral basilar infiltrates noted, suspected aspiration post CPR. C/w empiric Zosyn. MRSA negative. Discontinue vancomycin. Patient extubated on 01/28 to 2 L. Oxygen supplementation keeping saturation over 90%. Continue Pulmicort twice daily, DuoNeb every 6 hour. 3. Elevated troponin: Likely related to status post CPR. No obstructive CAD found in the [employer] App[employer]. LV gram with EF of 40%. Follow-up echocardiogram, myocarditis remains in the differential. 4. Hypertensive emergency: Does not have a formal history of hypertension. Though patient initial blood pressure on admission was elevated. Goal blood pressure less than 140/90 mmHg. Monitor blood pressures. IV hydralazine 10 mg every 4 hours as needed for a systolic of more than 160 mmHg. Blood pressures remain elevated can consider amlodipine 10 mg oral daily. Uptitrate as per goal blood pressure. 5. Rib fracture: Related to CPR. If needed will start pain control. And plan for fentanyl patch. 6. Leukocytosis: May be related to stress reaction versus underlying infection. CTA of the chest abdomen and pelvis showing increased fluid in the ascending colon ? Colitis. Patient has not yet had a bowel movement since arrival. There are no reported symptoms of abdominal pain diarrhea or nausea vomiting prior to the event today. Continue with Zosyn for now. Follow-up cultures. Plan: DVT prophylaxis: Heparin 5000 subcutaneously every 8 hours Full code PT/speech evaluation. Advance diet as per speech evaluation. For now we will start on soft mechanical diet. Protonix for PUD prophylaxis Patient did have multiple contrast studies including cardiac angiogram, CTA of the body done for evaluation for cardiac arrest on admission. Will monitor renal functions. For now continue with NS at 100 cc/h. Monitor urine output. PDMP PDMP Reviewed: Not Reviewed Attestations 2 Medical Necessity Statement*: As per primary team. Critical Care Time: The high probability of a clinically significant, sudden or life threatening deterioration of the patient's [pulmonary, cardiac] system(s) required my full and direct attention, intervention and personal management. The critical care time is as shown. This time is in addition to time spent performing any reported procedures but includes the following: [x] Data and vital sign review and interpretation [x] Patient assessment, examination and intervention [x] Documentation [x] Medication orders and management Critical Care Time (min): 70 Coding Level of Care Code Critical Care >/= 30 minutes Critical care time (in minutes): 70 The high probability of a clinically significant, sudden or life threatening deterioration, as referenced in this documentation, required my full and direct attention, intervention and personal management. The critical care time shown is in addition to time spent performing any reported separately billable procedures and includes the following: [x] Data and vital sign review and interpretation [x ] Patient assessment, examination and intervention [x] Medication orders and management [x] Patient/Family updates as able [x] Care Coordination and Documentation. Other Coding Information This patient has a high probability of clinically significant, sudden or life threatening deterioration of the patient's (neurological/pulmonary/cardiac/renal/ID/endocrine) systems required my full, direct attention, the highest level of physician preparedness for urgent intervention and personal management. I managed/supervised life or organ supporting interventions that required frequent physician assessment. I devoted my full attention in the ICU to the direct care of this patient for the period of time indicated above. Time I spent with family or surrogate(s) is included only if the patient was incapable of providing necessary information or participating in decision making. This time includes the following services provided: Telemetry review Mechanical Ventilation Hemodynamic interpretation, assessment and management Review and interpretation of CXR Review and interpretation of lab values Review and interpretation of microbiologic data and culture results Review of medications and administration Review and interpretation of Nutrition requirements and management Discussion of management with other consultants and services Clinical update to family members Diagnoses Cardiac arrest with ventricular fibrillation I46.9; I49.01 Aspiration pneumonia J69.0 Elevated troponin R79.89 Hypertensive emergency I16.1 Rib fracture S22.39XA Leukocytosis D72.829
[2025-01-28 12:06] LABS: MRSA PCR OZH (swab) NOT DETECTED (Negative)
[2025-01-28] MEDS: hyDRALAzine 20 mg/mL INJ 1 mL 10 MG IVP ×2 (14:46→21:49)
--- NOTE | 2025-01-28 15:03 | P.PN_ITS ---
<Statement entered by Alejandro Ruiz M.D - 01/31/25 13:58> Patient was cared for in conjunction with an advanced practice practitioner.? I reviewed the chart and all pertinent data including imaging, telemetry, and laboratory results.? I discussed the patient in detail with the advanced practice practitioner.? Please see their note for complete progress note, testing results and agreed upon plan of care for the patient. Echocardiogram revealed mild aortic stenosis with normal LV systolic function. Plan was for LifeVest. Subjective 2 Subjective: He was extubated this morning, currently sitting in chair at bedside. No chest pain or shortness of breath. He has some localized tenderness from the rib fracture related to CPR. Creatinine 1.2. No complications right femoral cath site. Vitals/I&O/Wt Last Vital Signs Temp 98.5 F 01/28/25 07:00 Pulse 101 H 01/28/25 13:00 Resp 20 H 01/28/25 13:00 BP 187/89 01/28/25 13:00 Pulse Ox 95 01/28/25 13:00 O2 Del Method Nasal Cannula 01/28/25 13:00 O2 Flow Rate 2 01/28/25 13:00 FiO2 45 01/28/25 09:57 01/28/25 01/28/25 01/28/25 06:59 14:59 22:59 Intake Total 1250.167 / 3745.290 2885.375 / 1439.375 Output Total 700 / 1650 Balance 550.167 / -95.957 1439.375 / 1439.375 Weight last 48 hrs Weight 284 lb 14.4 oz Weight 279 lb 6.4 oz Weight 300 lb Physical Exam 2 Const: COMMON NORMALS: no acute distress and patient oriented x3 GENERAL APPEARANCE: cooperative ORIENTATION/CONSCIOUSNESS: Yes awake, Yes oriented to person, Yes oriented to place and Yes oriented to time Chest: COMMONS NORMALS: normal inspection of the chest and normal palpation of entire chest wall CHEST: Yes Symmetrical chest wall rise Resp: COMMON NORMALS: normal respiratory effort, No retractions, No use of accessory muscles and clear to auscultation bilaterally AUSCULTATION: clear to auscultation bilaterally Cardio: COMMON NORMALS: regular rate, regular rhythm, S1 normal heart sound present, S2 normal heart sound present, No gallops present (Cardio), No clicks present (Cardio), No murmurs present (Cardio) and No rub (Cardio) RATE: r egular rate RHYTHM: regular rhythm HEART SOUNDS: S1 normal heart sound present and S2 normal heart sound present PERIPHERAL PULSES: radial pulses present positive right 2+ and femoral pulses present positive right 2+ Neuro: COMMON NORMALS: patient oriented x3 and moves all extremities S ENSORIUM/ORIENTATION: Yes oriented to person, Yes oriented to place and Yes oriented to time Skin: WOUNDS: Yes surgical site (no hematoma palpable) Details: no odor Urinary Catheter Management: Perry: Cath Placed During This Visit: yes Reason for Continuing Indwelling Catheter: Accurate Measurement of Urinary Output in Critically Ill Patients Urinary Catheter Date of Insertion: 01/27/25 Urinary Catheter Time of Insertion: 18:30 Data 01/28/25 03:36 01/28/25 03:36 Micro: Microbiology 01/28/25 04:50 Bacterial Antigens - Final Urine Kidney 01/27/25 20:55 Blood Culture - Preliminary Blood SPECIMEN COLLECTED 01/27/25 20:51 Blood Culture - Preliminary Blood SPECIMEN COLLECTED A&P Assessment and plan 1. Cardiac arrest with ventricular fibrillation: 2. Hypertensive emergency: Plan: Coronary angiography revealed patent coronaries. Will start him on guideline directed medical therapy, LVEF 40%. Start Entresto 24/26 mg 1 tablet twice a day, stop amlodipine. When he is able to discharge home he will need an event monitor. PDMP PDMP Reviewed: Not Reviewed Attestations 2 Medical Necessity Statement*: GMDT heart failure Coding Level of Care Code Acute Code for [facility] Fwd Diagnoses Cardiac arrest with ventricular fibrillation I46.9; I49.01 Hypertensive emergency I16.1
--- NOTE | 2025-01-28 17:48 | XACV_ITS ---
Wt: 136 kg Gender: Male : 1960 Any Known Allergies: No known allergies Exam Priority: Routine Indication(s): - Cardiac arrest Procedure(s): Procedure Description: Diagnostic procedure Procedure Description: Left Heart Catheterization Procedure Description: Left ventriculography Procedure Description: Coronary Angiography Diagnostic Cath Status: Emergency Diagnostic Findings * INDICATION: VFib cardiac arrest. * No significant disease noted in the Left Main, Left Anterior Descending, Right, or Circumflex coronary arteries. * Coronary angiography shows right dominance. Conclusions 1. No significant disease noted in the Left Main, Left Anterior Descending, Right, or Circumflex coronary arteries. 2. Mild left ventricular systolic dysfunction. Ejection fraction of 40-45%. Recommendations * Aggressive medical therapy. * Transfer to ICU. Interventional RX Recommendation: medical therapy and/or counseling Diagnostic RX Recommendation: medical therapy and/or counseling Ventriculography Ejection Fraction: 40.0 % Pressures Phase:Rest AO : 118 / 95 ( 104 ) @ 2:48:16 PM 139 / 104 ( 123 ) @ 2:48:16 PM 173 / 77 ( 110 ) @ 2:48:16 PM 176 / 67 ( 111 ) @ 2:48:16 PM LV : 169 / -2 / 22 @ 2:48:16 PM 158 / -2 / 21 @ 2:48:16 PM 166 / -3 / 23 @ 2:48:16 PM Valves Phase:DefaultPhase AV : 0.0 @ 7:48:16 PM AV Mean Gradient: 0.0 @ 7:48:16 PM Clinical Evaluation EBL: 5mL-10mL Procedural Details Admit Source: Emergency department. Current Diagnosis : ACS. Pre-Procedure Time Out. Identified patient by full name and date of as verbalized by the patient/guarantor. Does the consent match the physician's order: N/A Emergent. Accurate & Complete Informed Consent: N/A Emergent. Inpatient/Outpatient History & Physical on Chart: N/A Emergent. If H&P is completed, is and addenduem needed: N/A Emergent; If yes, is the addendum complete: N/A Emergent. Visualize and Verify Site with Patient/Guarantor: N/A. Relevant Radiology Images available: N/A Emergent. 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 Frailty Score: Unknown. Psychologist Social Indications: Other; Cardiac arrest. Cardiovascular Instability: Yes, if yes, Ventricular Arrhythmias. Current Diagnosis: Cardiac Arrhythmias; V Fib arrest. Procedure started. Patient intubated prior to arrival. Vent settings set per respiratory. Patient on propofol gtt from ER at 5 mcg/kg/min. Titrated up to 30 mcg/kg/min d/t restlessness. TWISTING FRAME CHANGER room to manage and titrate propofol as needed. PERRLA. Strong, equal hand outside salesman bilaterally. Lungs clear x 5 lobes. IV Site on Arrival: 18 gauge in the right anticubital. IV Site on Arrival: 18 gauge in the left anticubital. IV Fluids: 0.9% NaCl at KVO. 200 mL infused prior to label fuser tender. Pre Procedural Pulses: bilateral posterior tibial was Doppled. Pre Procedural Pulses: bilateral dorsalis pedis was Doppled. Pre Procedural Pulses: bilateral radial was 3+. Oxygen started at 3liters/min via nasal canula. bilateral groins was prepped with chloroprep then draped in the usual sterile fashion. Physician notified. Baseline sample Acquired. HR: 0 BPM. Physician arrived. Physician scrubbed in. Immediate Pre-Procedure Time Out. Correct Patient: Yes; Correct Procedure: Yes; Correct Site: Yes; Correct Patient Position: Yes; Correct Supplies: Yes; Dried Flammable Prep: Yes; Blood Products Available: N/A;. Family updated by MD prior to the start of the procedure. Propofol discontinued in favor of versed and fentany gtts. Versed gtt at 4mg/hr Fentanyl gtt at 100 mcg/hr. Pump set per verbal order from Dr Ruiz by Josie RN from ICU. rn dialysis's out d/t propofol being off. Lidocaine 1% infiltrated to the right groin. Meds from ER: Plavix 600 mg PO Aspirin 325 mg PO Heparin 4000 units IV. Arterial access obtained. A 5 micronesian JR4 catheter in over wire. Unable to advance down the descending. Wire removed. Glidewire inserted. Catheter advanced into position. Multiple views taken of right coronary artery. Catheter removed over the exchange wire. A 5 micronesian JL4 catheter in over wire. Multiple views taken of left coronary artery. Catheter removed over the exchange wire. A 5 micronesian Angled Pig catheter in over wire. EDP Sample taken: LV 169/-3,22; HR: 70 BPM; SpO2: 100%. LV gram performed in MENDEZ @ 10 mL/second for a total of 30 mL. Patient EF: Abnormal. EDP Sample taken: LV 158/-3,21; HR: 63 BPM; SpO2: 100%. Pullback taken: LV 166/-4,23; AO 173/77(110); Mean: 0mmHg, Peak to Peak: 0mmHg, SEP: 9sec/min; HR: 66 BPM; SpO2: 100%. Catheter removed over the wire. A Right femoral angiogram was performed to determine safe placement of closure device. [id number]. Total IV fluids: 40 mL. A Angio-Seal VIP ([facility]) was successful obtaining hemostatsis at the Right Femoral artery insertion site. LOT # [id number] EXP 10/07/2025. Angioseal placed without complications. No signs or symptoms of hematoma noted. Sterile dressing applied per usual sterile fashion. Post Procedure: Pulses reassessed and unchanged. PERRLA. Strong, equal hand outside salesman bilaterally. No VTE prophylaxis required. Medication's Wasted: Lidocaine 1% = 10 mL. Medication's Wasted: Fentanyl = 100 mg. Post-op diagnosis: Non obstructive CAD. Complications: None. Fluoro: 7:08. Contrast type used: Visipaque 320 mgI/mL, 200 mL bottle. Estimated blood loss: 5mL-10mL. Responsiveness - Normal response to verbal stimuli; alert and oriented, PERRLA. Airway - Unaffected, no intervention required; spontaneous ventilation. Circulation: W/N/L, pulses unchanged. Nausea/Vomiting: No. Procedure completed. Patient transferred by bed to ICU. Vital chart was stopped. Access Site Site: Right Femoral artery Sheath Size: 6 Fr Hemostasis Method: Angio-Seal VIP ([facility]) Hemostasis Success: Successful Procedure Medications Start: 6:57 PM Stop: 6:57 PM Medication: Versed Amount: 1 mg Route: I.V. Start: 6:57 PM Stop: 6:57 PM Medication: Versed Amount: 1 mg Route: I.V. I, the attending physician, have reviewed and verified all procedure medications. Yes, all medications given per verbal order History/Risk Factors Obesity: Yes Report Signatures Finalized by Alejandro Ruiz MD on 02/08/2025 10:06 AM
[2025-01-28] MEDS: morphine 4 mg/mL SDV 1 mL 2 MG IVP (18:21)
--- NOTE | 2025-01-28 18:24 | PC.NURSE ---
up in chair most of evening after extubation on nc , noted short term memory loss did have some chest pain with movement and cough pain medicine given
[2025-01-28] MEDS: pantoprazole 40 mg SDV IVP (20:33)
[2025-01-29] VITALS (55 sets, daily range): BP systolic 115–197; BP diastolic 56–110; PULSE 47–99; RESP 13–38; TEMP 36.9–38.5; O2SAT 90–97
[2025-01-29 01:31] LABS: Coronavirus 229E,HKU1,NL63,OC4 Not Detected (NOT DETECT); Parainfluenza Virus Type 1 Not Detected (NOT DETECT); Parainfluenza Virus Type 2 Not Detected (NOT DETECT); Parainfluenza Virus Type 3 Not Detected (NOT DETECT); Parainfluenza Virus Type 4 Not Detected (NOT DETECT); SARS-COV-2 Not Detected (NOT DETECT)
[2025-01-29] MEDS: piperacillin-tazobactam 3.375 GM in sodium chloride 0.9% (plus) 50 ML IV ×3 (04:34→20:41)
[2025-01-29] MEDS: heparin 5,000 unit/mL INJ 1 mL 5000 UNIT SUBCUT ×3 (04:34→20:41)
[2025-01-29 04:59] LABS: Hematocrit 39.2 % (37-53); Hemoglobin 13.40 g/dL (11.27-16.99); Mean Corpuscular HGB Conc 34.2 g/dL (30-55); Mean Corpuscular Hemoglobin 30.6 pg (27-33); Mean Corpuscular Volume 89.5 fl (82-101); Nucleated Red Blood Cells % 0 %; Platelet Count 208 10^3/cmm (157-399); Red Blood Count 4.38 10^6/uL (3.85-5.65); White Blood Count 11.58 10^3/uL (3.29-11.43)
[2025-01-29 05:25] LABS: Alanine Aminotransferase 22 U/L (0-41); Albumin Level 3.5 g/dL (3.5-5.2); Alkaline Phosphatase 70 U/L (40-130); Anion Gap 17.1 (5-19); Aspartate Amino Transferase 26 U/L (0-40); Blood Urea Nitrogen 15 mg/dL (8-23); Calcium 8.1 mg/dL (8.5-10.5); Carbon Dioxide 21 mmol/L (22-29); Chloride 109 mmol/L (98-107); Creatinine Clr Calc Pharmacy 113.4695; Globulin 2.2 g/dL (1.3-4.6); Glucose 123 mg/dL (65-115); Osmolality Calculated 300 mOsm/kg (285-295); Potassium 3.1 mmol/L (3.5-5.1); Sodium 144 mmol/L (136-145); Total Protein 5.7 g/dL (6.6-8.7)
[2025-01-29 05:30] LABS: Magnesium 1.9 mg/dL (1.7-2.3)
[2025-01-29] MEDS: hyDRALAzine 20 mg/mL INJ 1 mL 10 MG IVP (05:51)
[2025-01-29] MEDS: morphine 4 mg/mL SDV 1 mL 2 MG IVP (08:15)
[2025-01-29] MEDS: potassium chloride oral liq 20 mEq/15 mL UDC 40 MEQ PO (08:39)
[2025-01-29] MEDS: lidocaine 1% 5 ML in potassium chloride premix 100 ML 52.5 ML IV ×2 (09:30→11:39)
--- NOTE | 2025-01-29 09:31 | P.PN_ITS ---
<Statement entered by Alejandro Ruiz M.D - 01/31/25 14:05> Patient was cared for in conjunction with an advanced practice practitioner.? I reviewed the chart and all pertinent data including imaging, telemetry, and laboratory results.? I discussed the patient in detail with the advanced practice practitioner.? Please see their note for complete progress note, testing results and agreed upon plan of care for the patient. Documented by User: ERVIN Nolasco 01/29/25 09:42 Subjective 2 Subjective: He has done well overnight, sitting up in the chair again this morning. Morning labs noted, hypokalemic at 3.1. 40 mEq oral replacement given with 40 mEq IV. He has had a fever overnight, 100-101.3. Appreciate hospitalist discussion regarding possible sources. He is hesitant to cough and deep breathe given his rib fracture from CPR, I did instruct him this morning on the same. He is covered with antibiotic therapy per hospitalist. Blood pressure remains elevated. He was started on Entresto 24/26 mg last night, this morning carvedilol 12.5 mg twice a day and amlodipine added. Vitals/I&O/Wt Last Vital Signs Temp 100 F H 01/29/25 08:00 Pulse 84 01/29/25 08:00 Resp 20 H 01/29/25 08:15 BP 168/89 01/29/25 08:00 Pulse Ox 96 01/29/25 08:15 O2 Del Method Room Air 01/29/25 08:00 O2 Flow Rate 2 01/29/25 02:11 FiO2 45 01/28/25 09:57 01/28/25 01/29/25 01/29/25 22:59 06:59 14:59 Intake Total 2201.124 / 3930.499 290 / 3930.499 1045.833 / 1045.833 Output Total 800 / 3750 2950 / 3750 Balance 1401.124 / 180.499 -2660 / 792.964 1479.833 / 1045.833 Weight last 48 hrs Weight 284 lb 14.4 oz Weight 279 lb 6.4 oz Weight 300 lb Physical Exam 2 Const: COMMON NORMALS: no acute distress and patient oriented x3 GENERAL APPEARANCE: cooperative ORIENTATION/CONSCIOUSNESS: Yes awake, Yes oriented to person, Yes oriented to place and Yes oriented to time Chest: COMMONS NORMALS: normal inspection of the chest and normal palpation of entire chest wall CHEST: Yes Symmetrical chest wall rise Resp: COMMON NORMALS: normal respiratory effort, No retractions and No use of accessory muscles AUSCULTATION: crackles (bases) Laterality: bilateral and posterior Cardio: COMMON NORMALS: regular rate, regular rhythm, S1 normal heart sound present, S2 normal heart sound present, No gallops present (Cardio), No clicks present (Cardio), No murmurs present (Cardio) and No rub (Cardio) RATE: r egular rate RHYTHM: regular rhythm HEART SOUNDS: S1 normal heart sound present and S2 normal heart sound present PERIPHERAL PULSES: radial pulses present positive right 2+ and femoral pulses present positive right 2+ Neuro: COMMON NORMALS: patient oriented x3 and moves all extremities S ENSORIUM/ORIENTATION: Yes oriented to person, Yes oriented to place and Yes oriented to time Skin: WOUNDS: Yes surgical site (no hematoma palpable) Details: no odor Urinary Catheter Management: Perry: Cath Placed During This Visit: yes Reason for Continuing Indwelling Catheter: Accurate Measurement of Urinary Output in Critically Ill Patients Urinary Catheter Date of Insertion: 01/27/25 Urinary Catheter Time of Insertion: 18:30 Data 01/31/25 03:42 01/31/25 03:42 Micro: Microbiology 01/27/25 20:55 Blood Culture - Preliminary Blood NEGATIVE TO DATE 01/27/25 20:51 Blood Culture - Preliminary Blood NEGATIVE TO DATE 01/28/25 04:50 Bacterial Antigens - Final Urine Kidney A&P Assessment and plan 1. Cardiac arrest with ventricular fibrillation: 2. Hypertensive emergency: 3. Leukocytosis: 4. Rib fracture: 5. Aspiration pneumonia: Plan: Will continue to encourage cough and deep breathing; he appears euvolemic. I did have a discussion with him regarding LifeVest versus ICD for secondary prevention of malignant arrhythmia. He definitely does not want ICD but is willing to use LifeVest at discharge. Will be switching from primary team to consulting, hospitalist taking over primary. PDMP PDMP Reviewed: Not Reviewed Attestations 2 Medical Necessity Statement*: possible DC tomorrow with LifeVest Coding Level of Care Code Acute Code for [facility] Fwd Diagnoses Cardiac arrest with ventricular fibrillation I46.9; I49.01 Hypertensive emergency I16.1 Leukocytosis D72.829 Rib fracture S22.39XA Aspiration pneumonia J69.0 Documented by User: Alejandro Ruiz M.D 01/31/25 09:42 Physical Exam 2 Urinary Catheter Management: Perry: Cath Placed During This Visit: yes Data 01/31/25 03:42 01/31/25 03:42 A&P Assessment and plan 1. Cardiac arrest with ventricular fibrillation: 2. Hypertensive emergency: 3. Leukocytosis: 4. Rib fracture: 5. Aspiration pneumonia: PDMP PDMP Reviewed: Not Reviewed Coding Level of Care Code Acute Code for [facility] Diagnoses Cardiac arrest with ventricular fibrillation I46.9; I49.01 Hypertensive emergency I16.1 Leukocytosis D72.829 Rib fracture S22.39XA Aspiration pneumonia J69.0
[2025-01-29] MEDS: ondansetron 2 mg/ML SDV 2 mL 4 MG IVP (09:59)
[2025-01-29] MEDS: atropine 1 mg/mL SDV 1 mL 0.5 MG IVP (10:01)
--- NOTE | 2025-01-29 10:03 | ECG_ITS ---
[employer] Test Date: 2025-01-29 Pat Name: Cassi Navas Department: Room: [facility] Gender: Male Billing Rep: : 1960 Requested By: Alejandro Ruiz Order Number: [id number] Jann MD: Joseph Burnett M.D. Measurements Intervals [place] Rate: 60 P: 46 NC: 185 QRS: -53 QRSD: 139 T: 106 QT: 470 QTc: 470 Interpretive Statements SINUS RHYTHM INDETERMINATE AXIS RIGHT BUNDLE BRANCH BLOCK [120+ ms QRS DURATION, UPRIGHT V1, 40+ ms S IN I/aVL/V4/V5/V6] LEFT ANTERIOR FASCICULAR BLOCK [QRS AXIS <= -45, QR IN I, RS IN II] MODERATE T-WAVE ABNORMALITY, CONSIDER LATERAL ISCHEMIA [-0.1+ mV T-WAVE IN I/aVL/V5/V6] Compared to ECG 01/28/2025 00:11:06 Indeterminate axis now present T-wave abnormality now present Possible ischemia now present Electronically Signed On 01-29-2025 15:08:03 CDT by Joseph Burnett M.D. [id number] [id number]
--- NOTE | 2025-01-29 10:25 | PC.NURSE ---
Patient's heart rate went down to 40 beats per minute. Patient started to become nauseous and started to have blurry vision. OPTIONS TRADER Nora was called into the room and she ordered to get an EKG and to give atropine. After the Atropine was given, patient stated that they did not feel nauseous anymore and that the blurry vision has gotten better. Heart rate went up to 77.
--- NOTE | 2025-01-29 11:11 | USCV_ITS ---
Cassi Navas Age: 64 Gender: M : 1960 Exam Date: 01/29/2025 12:11 Ordering Phys: Nora Mehta Technologist: Juan F Scales Exam Location: [facility] – [place] Indication: vasovagal event, bradycardia BP: 139 / 77 HR: 63 Rhythm: Sinus Technical Quality: Adequate MEASUREMENTS (Male / Female) Normal Values 2D ECHO LV Diastolic Diameter PLAX 7.6 cm 4.2 - 5.9 / 3.9 - 5.3 cm IVS Diastolic Thickness 1.2 cm 0.6 - 1.0 / 0.6 - 0.9 cm IVS Systolic Thickness 1.8 cm LVPW Diastolic Thickness 1.7 cm 0.6 - 1.0 / 0.6 - 0.9 cm LVPW Systolic Thickness 2.5 cm LVOT Diameter 2.2 cm LV Ejection Fraction 2D Teich 55.1 % LV Ejection Fraction MOD 4C 68.2 % LV Ejection Fraction MOD 2C 67.4 % LV Ejection Fraction 2C AL 67.5 % LA Diameter 3.6 cm RA Systolic Volume 4C AL 49.9 ml RA Systolic Volume 4C MOD 51.9 ml LA Sys Volume AL 66.6 cm cubed LA Sys Volume Index AL 25.8 cm cubed/m squared Aorta at Sinotubular Diameter 2.6 cm M-MODE LA Ao Ratio MM 1.1 AV Cusp Separation MM 1.9 cm DOPPLER AV Peak Velocity 279.3 cm/s LVOT Peak Velocity 129.0 cm/s AV Area Cont Eq vti 1.7 cm squared AV Area Cont Eq pk 1.7 cm squared MV Peak Velocity 140.0 cm/s MV Area PHT 3.3 cm squared Mitral E to A Ratio 1.2 TV Peak Velocity 239.0 cm/s TR Peak Velocity 336.0 cm/s TR Peak Gradient 45.2 mmHg TR Mean Velocity 264.0 cm/s TR Mean Gradient 29.4 mmHg TR Velocity Time Integral 109.0 cm PV Peak Velocity 89.3 cm/s RV Ejection Time 0.3 s FINDINGS Left Ventricle Left ventricle is dilated. LV systolic function is normal with EF of 55-60%. No regional wall motion abnormalities are seen. Moderate left ventricular hypertrophy. Right Ventricle Normal in size and function Right Atrium Normal in size Left Atrium Normal in size Mitral Valve Structurally normal mitral valve. Trace mitral regurgitation Aortic Valve Grossly thickened. Mild aortic stenosis with aortic valve area of 1.64 cm squared and mean gradient across aortic valve of 16 mmHg. Mild aortic regurgitation. Tricuspid Valve Insufficient TR jet to calculate RVSP Pulmonic Valve Not well visualized Pericardium Normal Aorta Normal in size IVC Not well visualized CONCLUSIONS LV systolic function is normal with EF of 55-60% Moderate left ventricular hypertrophy Trace mitral regurgitation Mild aortic stenosis Mild aortic regurgitation. No comparison studies are available Alejandro Ruiz MD (Electronically Signed) Final Date: 29 January 2025 14:13 S
[2025-01-29] MEDS: potassium phosphate (mEq K) 40 MEQ in sodium chloride 0.9% (100 ml) 100 ML 27.25 MEQ IV (11:37)
--- NOTE | 2025-01-29 13:22 | P.PN_ITS ---
Subjective 2 Subjective: No acute events overnight. Patient has remained hemodynamically stable. Tmax in last 24 hours 101.3 Fahrenheit at midnight yesterday. Seen with family at bedside. Blood pressures have remained elevated. Has been able to walk around in his room. Able to tolerate regular diet. Today morning patient was sitting up in chair while trying to reach out for something on his stable he had an episode of bradycardia with heart rate dropping down to 38 in which she was symptomatic with nausea, dizziness and presyncope. Vitals/I&O/Wt Last Vital Signs Temp 98.5 F 01/29/25 10:00 Pulse 75 01/29/25 13:08 Resp 16 01/29/25 13:08 BP 144/88 01/29/25 12:30 Pulse Ox 96 01/29/25 13:08 O2 Del Method Room Air 01/29/25 13:08 O2 Flow Rate 2 01/29/25 02:11 FiO2 45 01/28/25 09:57 01/28/25 01/29/25 01/29/25 22:59 06:59 14:59 Intake Total 2201.124 / 3640.499 290 / 3930.499 1045.833 / 1045.833 Output Total 800 / 800 2950 / 3750 975 / 975 Balance 1401.124 / 2840.499 -2660 / 180.499 70.833 / 70.833 Weight last 48 hrs Weight 129.228 kg Weight 126.734 kg Weight 136.078 kg Physical Exam 2 Narrative: General: No acute distress, AO x 3, HEENT: PERRLA, pupils bilaterally equal and reactive, pallors not present Chest: Normal vesicular breath sounds, no added sounds, equal good air entry bilaterally CVS: S1-S2 regular, no murmurs, no tachycardia, no gallops, no rubs Abdomen: Soft, nontender, bowel sounds present Neuro: intubated, sedated Ext: no edema clubbing or cyanosis Urinary Catheter Management: Perry: Cath Placed During This Visit: yes Reason for Continuing Indwelling Catheter: Accurate Measurement of Urinary Output in Critically Ill Patients Urinary Catheter Date of Insertion: 01/27/25 Urinary Catheter Time of Insertion: 18:30 Data 01/29/25 04:15 01/29/25 04:15 Micro: Microbiology 01/27/25 20:55 Blood Culture - Preliminary Blood NEGATIVE TO DATE 01/27/25 20:51 Blood Culture - Preliminary Blood NEGATIVE TO DATE 01/28/25 04:50 Bacterial Antigens - Final Urine Kidney A&P Assessment and plan 1. Cardiac arrest with ventricular fibrillation: Patient brought to the emergency room today after having passed out at home. Upon EMS arrival reportedly patient was in V-fib. He received defibrillation followed by CPR Taken to L[employer] T[employer] Inspector upon arrival in view of V-fib arrest, noted to have clean coronaries. No obstructive CAD found. CTA chest abdomen pelvis negative for acute abnormality other than a possibility of mild colitis. CTA head and neck negative for acute abnormality. Could be in setting of arrhythmia. Cannot rule out V-fib given patient's poor EF on LV gram. Echocardiogram so far pending. Patient did have episode of symptomatic bradycardia with heart rate down to 38 while at rest today improving with atropine. Less likely in setting of seizure as patient does not have any history of seizure disorder. Unknown reason. Telemonitoring. Monitor electrolytes. Maintain magnesium around 2, potassium around 4. Replace potassium. Hypokalemia today most likely in setting of robust urine output. Repeat potassium level in afternoon. Continue with NS at 100 cc/h. 2. Aspiration pneumonia: CTA chest without PE bilateral basilar infiltrates noted, suspected aspiration post CPR. C/w empiric Zosyn. MRSA negative. Sputum culture not available. Patient extubated on 01/28 to 2 L. Oxygen supplementation keeping saturation over 90%. Continue Pulmicort twice daily, DuoNeb every 6 hour. 3. Hypertensive emergency: Does not have a formal history of hypertension. Though patient initial blood pressure on admission was elevated. Goal blood pressure less than 140/90 mmHg. Monitor blood pressures. IV hydralazine 10 mg every 4 hours as needed for a systolic of more than 160 mmHg. Given poor EF for now would continue with Entresto. Coreg to be added at 6.25 mg twice daily. Amlodipine 10 mg oral daily. Uptitrate as per goal blood pressure. 4. Leukocytosis: Down to 11,000. Could be in setting of mild colitis versus possible aspiration pneumonia. Appreciate CT results. Blood cultures so far negative. Sputum culture not available. Respiratory viral panel negative. Continue to follow-up on blood cultures. Continue with empiric IV Zosyn for now. If patient stable to be discharged from cardiac standpoint can plan to discharge patient on oral Augmentin and Levaquin to finish a 7-day course. Stool studies pending. 5. Left ventricular systolic dysfunction (LVSD): As per the LV gram. Formal echocardiogram results awaiting. Antihypertensive adjusted as above. Given patient presentation postcardiac arrest discussed with patient and cardiology team regarding possible need of LifeVest versus ICD. For now patient is not interested in ICD and may consider LifeVest. Will continue to follow. 6. Rib fracture: Related to CPR. If needed will start pain control. And plan for fentanyl patch. 7. Elevated troponin: Likely related to status post CPR. No obstructive CAD found in the [employer]. LV gram with EF of 40%. Follow-up echocardiogram, myocarditis remains in the differential. Plan: DVT prophylaxis: Heparin 5000 subcutaneously every 8 hours Full code Regular diet. Protonix for PUD prophylaxis. Patient did have multiple contrast studies including cardiac angiogram, CTA of the body done for evaluation for cardiac arrest on admission. Will monitor renal functions. For now continue with NS at 100 cc/h. Monitor urine output. PDMP PDMP Reviewed: Not Reviewed Attestations 2 Medical Necessity Statement*: As per primary team. Critical Care Time: The high probability of a clinically significant, sudden or life threatening deterioration of the patient's [pulmonary, cardiac] system(s) required my full and direct attention, intervention and personal management. The critical care time is as shown. This time is in addition to time spent performing any reported procedures but includes the following: [x] Data and vital sign review and interpretation [x] Patient assessment, examination and intervention [x] Documentation [x] Medication orders and management Critical Care Time (min): 70 Coding Level of Care Code Critical Care >/= 30 minutes Critical care time (in minutes): 70 The high probability of a clinically significant, sudden or life threatening deterioration, as referenced in this documentation, required my full and direct attention, intervention and personal management. The critical care time shown is in addition to time spent performing any reported separately billable procedures and includes the following: [x] Data and vital sign review and interpretation [x ] Patient assessment, examination and intervention [x] Medication orders and management [x] Patient/Family updates as able [x] Care Coordination and Documentation. Diagnoses Cardiac arrest with ventricular fibrillation I46.9; I49.01 Aspiration pneumonia J69.0 Hypertensive emergency I16.1 Leukocytosis D72.829 Left ventricular systolic dysfunction (LVSD) I51.89 Rib fracture S22.39XA Elevated troponin R79.89
[2025-01-29 14:36] LABS: Potassium 4.2 mmol/L (3.5-5.1)
[2025-01-29] MEDS: pantoprazole 40 mg SDV IVP (20:41)
[2025-01-30] VITALS (48 sets, daily range): BP systolic 129–198; BP diastolic 58–128; PULSE 54–94; RESP 12–29; TEMP 36.2–37.2; O2SAT 92–97
[2025-01-30 04:41] LABS: Hematocrit 40.0 % (37-53); Hemoglobin 13.60 g/dL (11.27-16.99); Mean Corpuscular HGB Conc 34.0 g/dL (30-55); Mean Corpuscular Hemoglobin 31.1 pg (27-33); Mean Corpuscular Volume 91.3 fl (82-101); Nucleated Red Blood Cells % 0 %; Platelet Count 237 10^3/cmm (157-399); Red Blood Count 4.38 10^6/uL (3.85-5.65); White Blood Count 10.71 10^3/uL (3.29-11.43)
[2025-01-30 05:04] LABS: Magnesium 2.0 mg/dL (1.7-2.3)
[2025-01-30 05:05] LABS: Alanine Aminotransferase 17 U/L (0-41); Albumin Level 3.4 g/dL (3.5-5.2); Alkaline Phosphatase 61 U/L (40-130); Anion Gap 15.1 (5-19); Aspartate Amino Transferase 18 U/L (0-40); Blood Urea Nitrogen 19 mg/dL (8-23); Calcium 8.2 mg/dL (8.5-10.5); Carbon Dioxide 23 mmol/L (22-29); Chloride 110 mmol/L (98-107); Creatinine Clr Calc Pharmacy 92.8387; Globulin 2.2 g/dL (1.3-4.6); Glucose 109 mg/dL (65-115); Osmolality Calculated 301 mOsm/kg (285-295); Potassium 4.1 mmol/L (3.5-5.1); Sodium 144 mmol/L (136-145); Total Protein 5.6 g/dL (6.6-8.7)
[2025-01-30] MEDS: heparin 5,000 unit/mL INJ 1 mL 5000 UNIT SUBCUT ×3 (05:05→19:19)
[2025-01-30] MEDS: piperacillin-tazobactam 3.375 GM in sodium chloride 0.9% (plus) 50 ML IV ×3 (05:06→20:45)
--- NOTE | 2025-01-30 14:15 | PC.NURSE ---
Last applied fentanyl patch found balled up and stuck to patient's gown. Nurse disposed of fentanyl patch with Arturo FERRO as a witness. New order entered to so a new patch could be removed from pyxis and applied. Dr faustin cancelled order before medication was pulled.
--- NOTE | 2025-01-30 15:08 | P.PN_ITS ---
Subjective 2 Subjective: No acute events overnight. Today morning seen with cardiology team at bedside. Spouse at bedside. He is sitting up in chair. Has remained hemodynamically stable and afebrile. Blood pressure slightly elevated. Remains on room air. Vitals/I&O/Wt Last Vital Signs Temp 97.2 F L 01/30/25 08:00 Pulse 67 01/30/25 10:30 Resp 20 H 01/30/25 10:30 BP 163/77 01/30/25 10:30 Pulse Ox 95 01/30/25 10:30 O2 Del Method Room Air 01/30/25 08:00 O2 Flow Rate 2 01/29/25 02:11 FiO2 45 01/28/25 09:57 01/30/25 01/30/25 01/30/25 06:59 14:59 22:59 Intake Total 1050 / 3464.9239 751.667 / 751.667 Balance 1050 / 2489.9239 751.667 / 751.667 Physical Exam 2 Narrative: General: No acute distress, AO x 3, HEENT: PERRLA, pupils bilaterally equal and reactive, pallors not present Chest: Normal vesicular breath sounds, no added sounds, equal good air entry bilaterally CVS: S1-S2 regular, no murmurs, no tachycardia, no gallops, no rubs Abdomen: Soft, nontender, bowel sounds present Neuro: intubated, sedated Ext: no edema clubbing or cyanosis Urinary Catheter Management: Perry: Cath Placed During This Visit: yes Reason for Continuing Indwelling Catheter: Accurate Measurement of Urinary Output in Critically Ill Patients Urinary Catheter Date of Insertion: 01/27/25 Urinary Catheter Time of Insertion: 18:30 Data 01/30/25 04:02 01/30/25 04:02 A&P Assessment and plan 1. Cardiac arrest with ventricular fibrillation: Patient brought to the emergency room today after having passed out at home. Upon EMS arrival reportedly patient was in V-fib. He received defibrillation followed by CPR Taken to Magnetic Tape Typewriter Operator upon arrival in view of V-fib arrest, noted to have clean coronaries. No obstructive CAD found. CTA chest abdomen pelvis negative for acute abnormality other than a possibility of mild colitis. CTA head and neck negative for acute abnormality. Could be in setting of arrhythmia. Cannot rule out V-fib. Patient did have episode of symptomatic bradycardia with heart rate down to 38 while at rest today improving with atropine. Having frequent PVCs. Would benefit with LifeVest as per cardiology team along with following up as an outpatient with senior staff psychologist. Continue with telemetry monitoring. Monitor electrolytes. Magnesium around 2, potassium around 4. DC IV fluids. Echocardiogram shows an EF of 55 to 60% moderate LVH. 2. Aspiration pneumonia: CTA chest without PE bilateral basilar infiltrates noted, suspected aspiration post CPR. C/w empiric Zosyn to finish a 5-day course. MRSA negative. Sputum culture not available. DC Pulmicort, change DuoNeb to as needed. Oxygen supplementation keeping saturation over 90%. 3. Hypertensive emergency: Does not have a formal history of hypertension. Though patient initial blood pressure on admission was elevated. Goal blood pressure less than 140/90 mmHg. Monitor blood pressures. IV hydralazine 10 mg every 4 hours as needed for a systolic of more than 160 mmHg. Continue with Coreg 6.25 mg twice daily. Uptitrate Entresto to 2 tablets twice daily. 4. Leukocytosis: Resolved. Could be in setting of mild colitis versus possible aspiration pneumonia. Appreciate CT results. Blood cultures so far negative. Sputum culture not available. Respiratory viral panel negative. Continue to follow-up on blood cultures. 5. Left ventricular systolic dysfunction (LVSD): Appreciate echocardiogram. 6. Rib fracture: Related to CPR. If needed will start pain control. And plan for fentanyl patch. 7. Elevated troponin: Plan: DVT prophylaxis: Heparin 5000 subcutaneously every 8 hours Full code Regular diet. Protonix for PUD prophylaxis. Can transfer to CSU. PDMP PDMP Reviewed: Not Reviewed Attestations 2 Medical Necessity Statement*: As per primary team. Diagnoses Cardiac arrest with ventricular fibrillation I46.9; I49.01 Aspiration pneumonia J69.0 Hypertensive emergency I16.1 Leukocytosis D72.829 Left ventricular systolic dysfunction (LVSD) I51.89 Rib fracture S22.39XA Elevated troponin R79.89
--- NOTE | 2025-01-30 17:59 | PC.NURSE ---
Shift Summary: Up to chair for most of shift, ambulated twice in the [place], approximately 300 feet each time. No complications Perry removed, patient has been able to void since. Entresto dose increased. Sinus Rythm all day. Life Vest will likely be here tommorow.
[2025-01-30] MEDS: pantoprazole 40 mg SDV IVP (19:19)
[2025-01-31] VITALS (20 sets, daily range): BP systolic 125–174; BP diastolic 62–105; PULSE 59–87; RESP 16–25; TEMP 36.6–37.1; O2SAT 92–96
[2025-01-31 04:32] LABS: Hematocrit 40.7 % (37-53); Hemoglobin 14.00 g/dL (11.27-16.99); Mean Corpuscular HGB Conc 34.4 g/dL (30-55); Mean Corpuscular Hemoglobin 31.1 pg (27-33); Mean Corpuscular Volume 90.4 fl (82-101); Nucleated Red Blood Cells % 0 %; Platelet Count 227 10^3/cmm (157-399); Red Blood Count 4.50 10^6/uL (3.85-5.65); White Blood Count 8.41 10^3/uL (3.29-11.43)
[2025-01-31] MEDS: piperacillin-tazobactam 3.375 GM in sodium chloride 0.9% (plus) 50 ML IV ×2 (04:42→13:41)
[2025-01-31] MEDS: heparin 5,000 unit/mL INJ 1 mL 5000 UNIT SUBCUT ×2 (04:42→12:15)
[2025-01-31 04:52] LABS: Alanine Aminotransferase 20 U/L (0-41); Albumin Level 3.3 g/dL (3.5-5.2); Alkaline Phosphatase 62 U/L (40-130); Anion Gap 13.5 (5-19); Aspartate Amino Transferase 20 U/L (0-40); Blood Urea Nitrogen 15 mg/dL (8-23); Calcium 8.4 mg/dL (8.5-10.5); Carbon Dioxide 25 mmol/L (22-29); Chloride 108 mmol/L (98-107); Creatinine Clr Calc Pharmacy 113.4695; Globulin 2.8 g/dL (1.3-4.6); Glucose 114 mg/dL (65-115); Osmolality Calculated 298 mOsm/kg (285-295); Potassium 3.5 mmol/L (3.5-5.1); Sodium 143 mmol/L (136-145); Total Protein 6.1 g/dL (6.6-8.7)
[2025-01-31] MEDS: morphine 4 mg/mL SDV 1 mL 2 MG IVP (08:43)
--- NOTE | 2025-01-31 09:42 | PM.PN ---
Subjective Subjective: (Please consider note for 01/30/2025 as patient was seen and care done but note missed) patient doing well. No chest pain. Had vagal episode yesterday that resolved with atropine. Blood pressure medicines are to be titrated. Has chest pain from CPR Vitals/I&O/Wt Last Vital Signs Temp 98.7 F 01/31/25 08:00 Pulse 81 01/31/25 08:00 Resp 18 01/31/25 08:43 BP 151/71 01/31/25 08:00 Pulse Ox 94 01/31/25 08:43 O2 Del Method Room Air 01/31/25 08:00 O2 Flow Rate 2 01/29/25 02:11 FiO2 45 01/28/25 09:57 01/30/25 01/31/25 01/31/25 22:59 06:59 14:59 Intake Total 50 / 801.667 50 / 851.667 50 / 50 Balance 50 / 801.667 50 / 851.667 50 / 50 Physical Exam Narrative: GENERAL: Patient is intubated and sedated NECK: No jugular vein distension. [] HEENT: No cyanosis. No icterus. No pallor. [] HEART: Regular rate and rhythm. Grade 2/6 systolic mumur LUNGS: Diminished air entry EXTREMITIES: Lower extremities with no edema Urinary Catheter Management: Perry: Cath Placed During This Visit: yes, but has since been removed by the nurse Reason for Continuing Indwelling Catheter: Decision to DC Catheter Urinary Catheter Date of Insertion: 01/27/25 Urinary Catheter Time of Insertion: 18:30 Date Urinary Catheter Removed: 01/30/25 Time Urinary Catheter Discontinued: 13:00 Data 01/31/25 03:42 01/31/25 03:42 Micro: Microbiology 01/30/25 13:15 Gram Stain - Final Sputum - Expectorated Sputum A&P Assessment and plan 1. Cardiac arrest with ventricular fibrillation: 2. Hypertensive emergency: 3. Leukocytosis: 4. Rib fracture: 5. Aspiration pneumonia: Plan: I had a detailed discussion with patient regarding secondary prevention of V-fib. Discussed all options including transferring him for possible ICD placement versus cardiac monitoring versus LifeVest and outpatient EP follow-up. Patient wants to have LifeVest placed for now to see EP as outpatient. We will order it and if approved patient will be discharged home with it. Potassium level is staying normal PDMP PDMP Reviewed: Not Reviewed Attestations Medical Necessity Statement*: Care expected to cross 2 midnights. Coding Level of Care Code Acute Code for [facility] Diagnoses Cardiac arrest with ventricular fibrillation I46.9; I49.01 Hypertensive emergency I16.1 Leukocytosis D72.829 Rib fracture S22.39XA Aspiration pneumonia J69.0
--- NOTE | 2025-01-31 09:47 | PM.PN ---
Subjective Subjective: Patient doing well. Likely will get LifeVest today. No arrhythmias. No chest pain Vitals/I&O/Wt Last Vital Signs Temp 98.7 F 01/31/25 08:00 Pulse 81 01/31/25 08:00 Resp 18 01/31/25 08:43 BP 151/71 01/31/25 08:00 Pulse Ox 94 01/31/25 08:43 O2 Del Method Room Air 01/31/25 08:00 O2 Flow Rate 2 01/29/25 02:11 FiO2 45 01/28/25 09:57 01/30/25 01/31/25 01/31/25 22:59 06:59 14:59 Intake Total 50 / 801.667 50 / 851.667 50 / 50 Balance 50 / 801.667 50 / 851.667 50 50 Physical Exam Narrative: GENERAL: Patient is intubated and sedated NECK: No jugular vein distension. [] HEENT: No cyanosis. No icterus. No pallor. [] HEART: Regular rate and rhythm. Grade 2/6 systolic mumur LUNGS: Diminished air entry EXTREMITIES: Lower extremities with no edema Urinary Catheter Management: Perry: Cath Placed During This Visit: yes, but has since been removed by the nurse Reason for Continuing Indwelling Catheter: Decision to DC Catheter Urinary Catheter Date of Insertion: 01/27/25 Urinary Catheter Time of Insertion: 18:30 Date Urinary Catheter Removed: 01/30/25 Time Urinary Catheter Discontinued: 13:00 Data 01/31/25 03:42 01/31/25 03:42 Micro: Microbiology 01/30/25 13:15 Gram Stain - Final Sputum - Expectorated Sputum A&P Assessment and plan 1. Cardiac arrest with ventricular fibrillation: 2. Hypertensive emergency: 3. Leukocytosis: 4. Rib fracture: 5. Aspiration pneumonia: Plan: Patient will likely get her LifeVest today. Will need outpatient EP follow-up Antihypertensive medications uptitrated. Once LifeVest is received, patient can be discharged home PDMP PDMP Reviewed: Not Reviewed Attestations Medical Necessity Statement*: Care expected to cross 2 midnights. Coding Level of Care Code Acute Code for [facility] Diagnoses Cardiac arrest with ventricular fibrillation I46.9; I49.01 Hypertensive emergency I16.1 Leukocytosis D72.829 Rib fracture S22.39XA Aspiration pneumonia J69.0
--- NOTE | 2025-01-31 11:32 | P.PN_ITS ---
Subjective 2 Subjective: No acute events overnight. Overnight blood pressure slightly elevated. Denies any nausea, vomiting, headache. Able to ambulate well in the unit. Patient having few episodes of VPCs and APCs. Vitals/I&O/Wt Last Vital Signs Temp 98.7 F 01/31/25 08:00 Pulse 62 01/31/25 10:00 Resp 21 H 01/31/25 10:00 BP 145/67 01/31/25 10:00 Pulse Ox 94 01/31/25 10:00 O2 Del Method Room Air 01/31/25 10:00 O2 Flow Rate 2 01/29/25 02:11 FiO2 45 01/28/25 09:57 01/30/25 01/31/25 01/31/25 22:59 06:59 14:59 Intake Total 50 / 801.667 50 / 851.667 50 / 50 Balance 50 / 801.667 50 / 851.667 50 / 50 Physical Exam 2 Narrative: General: No acute distress, AO x 3, HEENT: PERRLA, pupils bilaterally equal and reactive, pallors not present Chest: Normal vesicular breath sounds, no added sounds, equal good air entry bilaterally CVS: S1-S2 regular, no murmurs, no tachycardia, no gallops, no rubs Abdomen: Soft, nontender, bowel sounds present Neuro: intubated, sedated Ext: no edema clubbing or cyanosis Urinary Catheter Management: Perry: Cath Placed During This Visit: yes, but has since been removed by the nurse Reason for Continuing Indwelling Catheter: Decision to DC Catheter Urinary Catheter Date of Insertion: 01/27/25 Urinary Catheter Time of Insertion: 18:30 Date Urinary Catheter Removed: 01/30/25 Time Urinary Catheter Discontinued: 13:00 Data 01/31/25 03:42 01/31/25 03:42 Micro: Microbiology 01/30/25 13:15 Gram Stain - Final Sputum - Expectorated Sputum A&P Assessment and plan 1. Cardiac arrest with ventricular fibrillation: Patient brought to the emergency room today after having passed out at home. Upon EMS arrival reportedly patient was in V-fib. He received defibrillation followed by CPR Taken to Trustee Of Estate upon arrival in view of V-fib arrest, noted to have clean coronaries. No obstructive CAD found. CTA chest abdomen pelvis negative for acute abnormality other than a possibility of mild colitis. CTA head and neck negative for acute abnormality. Could be in setting of arrhythmia. Cannot rule out V-fib. Patient did have episode of symptomatic bradycardia with heart rate down to 38 while at rest today improving with atropine. Having frequent PVCs. Would benefit with LifeVest as per cardiology team along with following up as an outpatient with aircraft restorer. Continue with telemetry monitoring. Monitor electrolytes. Magnesium around 2, potassium around 4. DC IV fluids. Echocardiogram shows an EF of 55 to 60% moderate LVH. 2. Aspiration pneumonia: CTA chest without PE bilateral basilar infiltrates noted, suspected aspiration post CPR. C/w empiric Zosyn to finish a 5-day course. MRSA negative. Sputum culture not available. DC Pulmicort, change DuoNeb to as needed. Oxygen supplementation keeping saturation over 90%. 3. Hypertensive emergency: Does not have a formal history of hypertension. Though patient initial blood pressure on admission was elevated. Goal blood pressure less than 140/90 mmHg. Monitor blood pressures. IV hydralazine 10 mg every 4 hours as needed for a systolic of more than 160 mmHg. Continue with Coreg 6.25 mg twice daily. Uptitrate Entresto to 2 tablets twice daily. 4. Leukocytosis: Resolved. Could be in setting of mild colitis versus possible aspiration pneumonia. Appreciate CT results. Blood cultures so far negative. Sputum culture not available. Respiratory viral panel negative. Continue to follow-up on blood cultures. 5. Left ventricular systolic dysfunction (LVSD): Appreciate echocardiogram. 6. Rib fracture: Related to CPR. If needed will start pain control. And plan for fentanyl patch. 7. Elevated troponin: Plan: DVT prophylaxis: Heparin 5000 subcutaneously every 8 hours Full code Regular diet. Protonix for PUD prophylaxis. Plan for the day: Goal blood pressure less than 140/90 mmHg. Continue with current dose of Coreg and Entresto. Added amlodipine 10 mg oral daily. Continue Zosyn for now. Patient to be stable to be discharged from medical standpoint once LifeVest is available as per cardiology recommendations. Med rec completed. PDMP PDMP Reviewed: Not Reviewed Attestations 2 Medical Necessity Statement*: As per primary team. Diagnoses Cardiac arrest with ventricular fibrillation I46.9; I49.01 Aspiration pneumonia J69.0 Hypertensive emergency I16.1 Leukocytosis D72.829 Left ventricular systolic dysfunction (LVSD) I51.89 Rib fracture S22.39XA Elevated troponin R79.89
--- NOTE | 2025-01-31 14:27 | PM.DCS ---
Discharge Providers Date of Admission: 01/27/25 20:21 Date of Discharge: January 31, 2025 Attending Provider at Admission: Alejandro Ruiz M.D Attending Provider at Discharge: Alejandro Ruiz M.D Diagnoses at Discharge Discharge Diagnosis 1. Cardiac arrest with ventricular fibrillation: 2. Aspiration pneumonia: 3. Hypertensive emergency: 4. Leukocytosis: 5. Left ventricular systolic dysfunction (LVSD): 6. Rib fracture: 7. Elevated troponin: Reason for Visit Reason for Visit: Cardiac arrest Brief History: 64 year old male with no prior known cardiac history has been brought by EMS after he passed out while working in the backyard with the . Per EMS there was no chest pain complaints before. The started CPR and called EMS. Was noted to be in V-fib arrest. ROSC acheived and per EMS, total CPR time was approx 15 minutes. Post ROSC not showing STEMI. Patient is intubated. Hospital Course Hospital Course Coronary angiogram demonstrated patent coronary arteries. Medicine team was consulted for medical workup. CT scan of the chest and abdomen was done. CT head was also performed. No etiology of cardiac arrest was noted on imaging. Echo showed normal LV systolic function with mild aortic stenosis. Patient was extubated the following morning. Only chest pain at site of chest compressions. Patient had hypokalemia treated with replacement. Discussion regarding defibrillator versus LifeVest. Patient decided to go home with LifeVest. Outpatient EP evaluation. Blood pressure is uncontrolled. Patient started on antihypertensive regimen. Also started on potassium replacement. Patient discharged in a stable condition. Physical Exam Narrative: GENERAL: Patient is alert and oriented x3 NECK: No jugular vein distension. [] HEENT: No cyanosis. No icterus. No pallor. [] HEART: Regular rate and rhythm. Grade 2/6 systolic mumur LUNGS: Clear to auscultation bilaterally EXTREMITIES: Lower extremities with no edema Urinary Catheter Management: Perry: Cath Placed During This Visit: yes, but has since been removed by the nurse Reason for Continuing Indwelling Catheter: Decision to DC Catheter Urinary Catheter Date of Insertion: 01/27/25 Urinary Catheter Time of Insertion: 18:30 Date Urinary Catheter Removed: 01/30/25 Time Urinary Catheter Discontinued: 13:00 Discharge Data Studies Completed and Pending Completed Studies During Hospitalization Category Date Time Status CT abdomen pelvis w con* [id number] Routine Cat Scan 01/27/25 19:[address] angio chest PE protcl [id number] Stat Cat Scan 01/27/25 17:[address] head wo con* [id number] Stat Cat Scan 01/27/25 19:44 Completed CTA head neck [CT angio headneck* [id number]] Stat Cat Scan 01/27/25 19:44 Completed XR chest 1V portable [id number] Stat Exams 01/27/25 17:48 Completed CV. echo complete* [id number] Stat Ultrasound 01/29/25 11:11 Completed Pending at discharge Category Date Time Status [employer] request for service Stat Exams 01/28/25 17:48 Taken Blood Culture Stat Lab 01/27/25 20:55 Results Sputum Culture and Gram Stain Stat Lab 01/30/25 13:15 Results Radiology Impressions Chest CTA 01/27/25 17:48 IMPRESSION: 1. Endotracheal catheter and NG/OG tube appear in good position, as noted above. 2. No findings of thoracic aortic dissection/aneurysm. Pulmonary arteries show no significant abnormality. 3. Dependent areas of consolidation noted posteriorly throughout both lungs, more prominent within the lower lungs. While this may represent significant component of atelectasis, though also consider pneumonia such as aspiration. 4. Cardiomegaly, particularly left side of the heart and suggestion of left ventricular hypertrophy. No pericardial effusion. [id number] left coronary artery calcification. 5. Cholelithiasis. 6. Nondisplaced rib fracture anterior 5th rib on the right. Chest X-Ray 01/27/25 17:48 IMPRESSION: 1. Endotracheal catheter appears in good position, approximately 4 cm above the level of the javier. NG/OG tube is seen with distal aspect in the upper left abdomen at the expected level of the stomach. 2. Accentuation or prominence of the cardiomediastinal silhouette with supine exam, along with mild central vascular congestion with supine exam. When clinically able, this could be better evaluated with semi-upright or upright exam. Abdomen/Pelvis CT 01/27/25 19:44 IMPRESSION: 1. Right anterolateral 5th, as well as possible 6th and 7th lateral rib fractures. 2. Enteric tube tip in the stomach. 3. Cholelithiasis. 4. Diverticulosis without diverticulitis. 5. Prominent fluid in the stomach small bowel and ascending colon, please correlate for a gastroenteritis colitis. 6. Perry catheter in the urinary bladder with a small amount of contrast in the urinary bladder without free extravasation. 7. Cardiomegaly. 8. Bilateral dependent airspace infiltrates. Head CT 01/27/25 19:44 IMPRESSION: No acute intracranial abnormality. Head/Neck CTA 01/27/25 19:44 IMPRESSION: No large vessel stenosis or occlusion. IMPRESSION: No stenosis or occlusion. REFERENCES: NASCET CRITERIA. The degree of stenosis in the cervical segment of the internal carotid artery is based on NASCET criteria. Normal is no stenosis. Mild is less than 50% stenosis. Moderate is 50-69% stenosis. Severe is 70% to 99% stenosis. Total occlusion is no detectable patent lumen. Laboratory Results WBC 8.41 10^3/uL (3.29-11.43) 01/31/25 03:42 RBC 4.50 10^6/uL (3.85-5.65) 01/31/25 03:42 Hgb 14.00 g/dL (11.27-16.99) 01/31/25 03:42 Hct 40.7 % (37-53) 01/31/25 03:42 MCV 90.4 fl (82-101) 01/31/25 03:42 MCH 31.1 pg (27-33) 01/31/25 03:42 MCHC 34.4 g/dL (30-55) 01/31/25 03:42 RDW 13.8 % (12.1-15.1) 01/31/25 03:42 Plt Count 227 10^3/cmm (157-399) 01/31/25 03:42 MPV 10.1 fL (7.4-10.4) 01/31/25 03:42 Neut % (Auto) 66.5 % 01/31/25 03:42 Lymph % (Auto) 22.1 % 01/31/25 03:42 Wirt % (Auto) 7.3 % 01/31/25 03:42 Eos % (Auto) 3.1 % 01/31/25 03:42 Baso % (Auto) 0.6 % 01/31/25 03:42 Neut # (Auto) 5.60 10^3/uL (1.8-7.7) 01/31/25 03:42 Lymph # (Auto) 1.9 10^3/uL (0.8-4.8) 01/31/25 03:42 Wirt # (Auto) 0.6 10^3/uL (0.2-0.9) 01/31/25 03:42 Eos # (Auto) 0.3 10^3/uL (0.0-0.8) 01/31/25 03:42 Baso # (Auto) 0.1 10^3/uL (0.0-0.1) 01/31/25 03:42 Nucleated RBC % (auto) 0 % 01/31/25 03:42 Nucleated RBCs # 0.0 /100WBC 01/31/25 03:42 PT 14.20 SECONDS (12.1-14.9) 01/27/25 18:58 INR 1.03 (0.8-1.2) 01/27/25 18:58 APTT 59.0 SECONDS (23.9-36.7) H 01/27/25 18:58 Specimen Type Arterial 01/28/25 04:40 Sample Site Radial, right 01/28/25 04:40 ABG pH 7.36 (7.35-7.45) 01/28/25 04:40 ABG pCO2 44.1 mmHg (35-45) 01/28/25 04:40 ABG pO2 110.0 mmHg (80.0-100.0) H 01/28/25 04:40 ABG PO2/FiO2 Ratio 183 01/28/25 04:40 ABG HCO3 24.6 mmol/L (22-26) 01/28/25 04:40 ABG O2 Saturation 91.0 01/27/25 17:48 ABG Base Excess -1.1 mmol/L (-2.0-2.0) 01/28/25 04:40 Raj Test Pos 01/28/25 04:40 A-a O2 Gradient 75.5 mmHg (5-10) H 01/27/25 17:48 Hematocrit 43.6 % (42-52) 01/28/25 04:40 Hgb O2 Saturation 89.1 % (95-100) L 01/27/25 17:48 Carboxyhemoglobin 1.1 %THgb (0.4-20.1) 01/27/25 17:48 Methemoglobin 1.0 % (0.4-1.5) 01/27/25 17:48 Total Hemoglobin 15.2 g/dL (14-18) 01/27/25 17:48 Sodium 147.0 mmol/L (131-143) H 01/27/25 17:48 Potassium 3.0 mmol/L (3.5-5.0) L 01/27/25 17:48 Glucose 218.0 mg/dL (70-115) H 01/27/25 17:48 Ionized Calcium 1.2 mmol/L (1.1-1.4) 01/27/25 17:48 O2 Delivery Device Vent 01/28/25 04:40 FiO2 60.0 % 01/28/25 04:40 Tidal Volume 0.50 01/28/25 04:40 PEEP 10.0 cmH20 01/28/25 04:40 Typewriter Assembler ID [id number] 01/28/25 04:40 Sodium 143 mmol/L (136-145) 01/31/25 03:42 Potassium 3.5 mmol/L (3.5-5.1) 01/31/25 03:42 Chloride 108 mmol/L (98-107) H 01/31/25 03:42 Carbon Dioxide 25 mmol/L (22-29) 01/31/25 03:42 Anion Gap 13.5 (5-19) 01/31/25 03:42 BUN 15 mg/dL (8-23) 01/31/25 03:42 Creatinine 0.9 mg/dL (0.7-1.2) 01/31/25 03:42 GFR Calculation 85.2 mL/min (90-130) L 01/31/25 03:42 Glucose 114 mg/dL (65-115) 01/31/25 03:42 Estimat Average Glucose 114 01/27/25 20:51 Hemoglobin A1c 5.6 % (4.0-6.0) 01/27/25 20:51 Calculated Osmolality 298 mOsm/kg (285-295) H 01/31/25 03:42 Lactic Acid 1.4 mmol/L (0.5-2.2) 01/27/25 20:51 Calcium 8.4 mg/dL (8.5-10.5) L 01/31/25 03:42 Phosphorus 2.8 mg/dL (2.5-4.5) 01/30/25 04:02 Magnesium 2.0 mg/dL (1.7-2.3) 01/30/25 04:02 Iron 58 ug/dL (59-158) L 01/27/25 20:51 TIBC 284 mcg/dl 01/27/25 20:51 % Saturation 20.4 % (20-50) 01/27/25 20:51 Unsat Iron Binding 226 ug/dL (112-347) 01/27/25 20:51 Total Bilirubin 0.7 mg/dL (0.15-1.2) 01/31/25 03:42 AST 20 U/L (0-40) 01/31/25 03:42 ALT 20 U/L (0-41) 01/31/25 03:42 Alkaline Phosphatase 62 U/L (40-130) 01/31/25 03:42 Troponin T Baseline 73 ng/L (0-15) H 01/27/25 18:58 Troponin T 120 Minute 211.7 ng/L (0-15) H 01/27/25 20:51 Delta Troponin T 138.7 ABS# (0-10) H* 01/27/25 20:51 Troponin T Hi Sens 6Hr 279.1 ng/L (0-15) H 01/28/25 00:30 Troponin T Hi Sens 6Hr Delta 206.1 ng/L (0-12) H* 01/28/25 00:30 NT-Pro-B Natriuret Pep 2977 pg/mL (0-125) H 01/27/25 18:58 Total Protein 6.1 g/dL (6.6-8.7) L 01/31/25 03:42 Albumin 3.3 g/dL (3.5-5.2) L 01/31/25 03:42 Globulin 2.8 g/dL (1.3-4.6) 01/31/25 03:42 Triglycerides 65 mg/dL (0-150) 01/28/25 03:36 Cholesterol 155 mg/dL (0-200) 01/28/25 03:36 LDL Cholesterol, Calc 104 mg/dL (50-129) 01/28/25 03:36 HDL Cholesterol 38 mg/dL (60-100) L 01/28/25 03:36 LDL/HDL Ratio 2.74 RATIO (0.00-3.22) 01/28/25 03:36 Cholesterol/HDL Ratio 4.08 mg/dL (1.0-5.00) 01/28/25 03:36 Lipase 25 U/L (13-60) 01/27/25 18:58 Vitamin B12 715 pg/mL (232-1245) 01/27/25 20:51 Folate 19.4 ng/mL (4.5-32.2) 01/28/25 03:36 Procalcitonin 0.99 ng/mL (0-0.5) H 01/28/25 03:36 TSH 5.62 uIU/mL (0.27-4.20) H 01/27/25 20:51 Free T4 0.94 ng/dL (0.82-1.77) 01/28/25 03:36 Free T3 2.5 PG/ML (2.0-4.4) 01/28/25 03:36 Urine Color Yellow (Yellow) 01/28/25 04:50 Urine Appearance Turbid (CLEAR) A 01/28/25 04:50 Urine pH 5.0 (5-7) 01/28/25 04:50 Ur Specific Spangler 1.091 (1.005-1.030) H 01/28/25 04:50 Urine Protein 1+ (Negative) A 01/28/25 04:50 Urine Glucose (UA) Negative (Normal) 01/28/25 04:50 Urine Ketones Negative (Negative) 01/28/25 04:50 Urine Blood 1+ (Negative) A 01/28/25 04:50 Urine Nitrate Negative (Negative) 01/28/25 04:50 Urine Bilirubin Negative (Negative) 01/28/25 04:50 Urine Urobilinogen 1.0 mg/dL (Negative) 01/28/25 04:50 Ur Leukocyte Esterase Negative (Negative) 01/28/25 04:50 Urine RBC 0-4 /hpf (0-2) H 01/28/25 04:50 Urine WBC 0-4 /hpf (0-5) H 01/28/25 04:50 Ur Squamous Epith Cells None /hpf (0-5) 01/28/25 04:50 Amorphous Sediment 2+ /hpf 01/28/25 04:50 Urine Bacteria None /hpf (NONE) 01/28/25 04:50 Urine Mucus 1+ /hpf 01/28/25 04:50 Nasal MRSA (PCR) Not detected (Negative) 01/28/25 10:15 Urine Opiates Screen Negative ng/mL (Negative) 01/28/25 04:50 Ur Barbiturates Screen Negative ng/mL (Negative) 01/28/25 04:50 Ur Phencyclidine Scrn Negative ng/mL (Negative) 01/28/25 04:50 Ur Amphetamines Screen Negative ng/mL (Negative) 01/28/25 04:50 U Benzodiazepines Scrn Positive ng/mL (Negative) H 01/28/25 04:50 Urine Cocaine Screen Negative ng/mL (Negative) 01/28/25 04:50 U Marijuana (THC) Screen Negative ng/mL (Negative) 01/28/25 04:50 Adenovirus (PCR) Not detected (NOT DETECT) 01/28/25 23:30 C. pneumoniae DNA (PCR) Not detected (NOT DETECT) 01/28/25 23:30 Coronavirus 229E (PCR) Not detected (NOT DETECT) 01/28/25 23:30 Human Metapneumovir PCR Not detected (NOT DETECT) 01/28/25 23:30 Influenza A (H1) PCR Not detected (NOT DETECT) 01/28/25 23:30 Influ A (H1/09) PCR Not detected (NOT DETECT) 01/28/25 23:30 Influenza A (H3) PCR Not detected (NOT DETECT) 01/28/25 23:30 Influenza Type A (PCR) Not detected (NOT DETECT) 01/28/25 23:30 Influenza Type B (PCR) Not detected (NOT DETECT) 01/28/25 23:30 M. pneumoniae (PCR) Not detected (NOT DETECT) 01/28/25 23:30 Parainfluenza 1 (PCR) Not detected (NOT DETECT) 01/28/25 23:30 Parainfluenza 2 (PCR) Not detected (NOT DETECT) 01/28/25 23:30 Parainfluenza 3 (PCR) Not detected (NOT DETECT) 01/28/25 23:30 Parainfluenza 4 (PCR) Not detected (NOT DETECT) 01/28/25 23:30 RSV Type A (PCR) Not detected (NOT DETECT) 01/28/25 23:30 RSV Type B (PCR) Not detected (NOT DETECT) 01/28/25 23:30 Entero/Rhino (PCR) Not detected (NOT DETECT) 01/28/25 23:30 SARS-CoV-2 (PCR) Not detected (NOT DETECT) 01/28/25 23:30 Vitals Last Vital Signs Temp 98.7 F 01/31/25 08:00 Pulse 74 01/31/25 12:00 Resp 18 01/31/25 12:00 BP 141/79 01/31/25 12:00 Pulse Ox 96 01/31/25 12:00 O2 Del Method Room Air 01/31/25 12:00 O2 Flow Rate 2 01/29/25 02:11 FiO2 45 01/28/25 09:57 Discharge Plan Discharge Patient Disposition: Home Condition: Stable Prescriptions: New Entresto 24-26 mg Tablet 2 tab PO BID 30 Days Qty: 120 0RF carvedilol 6.25 mg Tablet 6.25 mg PO BID 30 Days Qty: 60 2RF amlodipine 10 mg Tablet 10 mg PO DAILY 30 Days Qty: 60 2RF potassium chloride [K-Tab] 20 mEq tablet extended release 20 meq PO DAILY Qty: 60 1RF Community Specialist OK for DC: Hospitalist Discharge Order = DC NOW: Discharge Order (Routine); Ordered 01/31/25 Ordered By: Alejandro Ruiz Other Ambulatory Orders: Basic Metabolic Panel (Routine) Timeframe: [id number] Facility: [facility] - Location: Lab - Main Lab Ordered By: Alejandro Ruiz Referrals: Yadira Bravo NP [Nurse Practitioner, Cardiology] - 2 weeks Referral Note: office will call you with appt. Corina Ayoub FNP [Nurse Practitioner, Nurse Practitioner] - 02/01/25 2:00 pm Referral Note: This is an appointment to establish a primary care provider. Please arrive 15 mins early to complete paperwork. Please bring insurance cards and any medications prescribed in original bottles. If unable to keep this appointment for some reason please call to rescchedule or cancel. Discharge Diet: Low Salt Discharge Activity: Increase activity as tolerated Patient Instructions: Potassium Chloride (By mouth), Amlodipine (By mouth), Carvedilol (By mouth), Sacubitril/Valsartan (By mouth), Heart Failure (DC), Hypertensive Crisis (DC), Opioid Safety, Post Angiogram Home Care Instructions, Patient Portal & David Instructions Activity Restrictions/Additional Instructions: Please check your blood pressure daily at home maintain blood pressure diary. Goal blood pressure of less than 140/90 mmHg. Follow-up with your primary care provider within next 2 weeks for further adjustment of antihypertensive as needed. Follow-up with cardiology team rules. Discharge Attestations Time Spent in Discharge Care*: less than 30 min Quality Metrics Clinical Quality Measures [ No reported AMI, CVA or VTE this stay] Coding Level of Care Code Acute Code for Chg Fwd Diagnoses Cardiac arrest with ventricular fibrillation I46.9; I49.01 Aspiration pneumonia J69.0 Hypertensive emergency I16.1 Leukocytosis D72.829 Left ventricular systolic dysfunction (LVSD) I51.89 Rib fracture S22.39XA Elevated troponin R79.89
--- NOTE | 2025-01-31 14:45 | PC.NURSE ---
Medications called in to [facility] pharmacy. Patient's preferred pharmacy is closed today
--- NOTE | 2025-01-31 15:21 | PC.NURSE ---
Discharge patient. Educated patient and on upcoming appointments, new medications, and activity recommendations. Unable to make appointments with Primary care and cardiology due to it being saturday. Messages were left with offices. Patient encouraged to call to verify they received the message and are scheduling. Patient's preferred pharmacy is closed on saturday, medications sent to [facility] pharmacy. Left with all belongings.
--- NOTE | 2025-01-31 15:31 | PC.NURSE ---
Addendum entered by Ryan Bradshaw RN 01/31/25 15:35: NUrse called patient's [place] and alerted her to medication change. Losartan to start tommorow, do not take tonight. Original Note: After discharge, wendy with [facility] pharmacy called and said his entresto will not be covered by his insurance. $1700.[address] means changed medication to losartan, 50mg once daily.
== END 2025-01-31 15:10 | disposition home or self-care (01) | DRG 286 ==
LOC: ER 17:48 → CCL 17:50 → ICU 20:22
PROVIDERS: Student in an Organized Health Care Education/Training Program; Admitting Provider Internal Medicine; Emergency Provider Student in an Organized Health Care Education/Training Program; Visit Provider Internal Medicine
PROC: 4A023N7 Measurement of Cardiac Sampling and Pressure, Left Heart, Percutaneous Approach (ICD-10-PCS; principal; 2025-01-27 18:45)
DX: I46.9 Cardiac arrest, cause unspecified (principal); J69.0 Pneumonitis due to inhalation of food and vomit; M96.A3 Multiple fractures of ribs associated with chest compression and cardiopulmonary resuscitation; I49.01 Ventricular fibrillation; I16.0 Hypertensive urgency; I51.9 Heart disease, unspecified; R79.89 Other specified abnormal findings of blood chemistry; E87.6 Hypokalemia
CPT/HCPCS: 36415; 36600; 51702; 70450; 70496; 70498; 71045; 71275; 74177; 80051; 80053; 80061; 80306; 81001; 82330; 82607; 82746; 82803; 82805; 83036; 83540; 83550; 83605; 83690; 83735; 83880; 84100; 84132; 84145; 84439; 84443; 84481; 84484; 85025; 85610; 85730; 86403; 87040; 87070; 87205; 87486; 87581; 87633; 92507; 92523; 92610; 93005; 93306; 93458; 94002; 94003; 94640; 94664; 94799; 96365; 96367; 96372; 96374; 96375; 96376; 97161; 99152; 99153; 99291; C1760; C1769; C1887; C1894; G0269; J0330; J0360; J0461; J1644; J2250; J2270; J2405; J2470; J2543; J2704; J3010; J3370; J3480; J3490; J7030; J7626; J9999; Q9967

== ENCOUNTER 2025-02-04 11:39 | Outpatient (CLI) | payer BC, MEDICAID, SELFPAY ==
[2025-02-04 13:27] LABS: Anion Gap 13.2 (5-19); Blood Urea Nitrogen 14 mg/dL (8-23); Calcium 8.9 mg/dL (8.5-10.5); Carbon Dioxide 28 mmol/L (22-29); Chloride 103 mmol/L (98-107); Glucose 98 mg/dL (65-115); Osmolality Calculated 290 mOsm/kg (285-295); Potassium 4.2 mmol/L (3.5-5.1); Sodium 140 mmol/L (136-145)
== END 2025-02-04 11:40 | disposition home or self-care (01) ==
LOC: LAB 11:40
PROVIDERS: Visit Provider Internal Medicine
DX: E87.6 Hypokalemia (principal)
CPT/HCPCS: 36415; 80048